=== PATIENT | female | born 1940 | race Caucasian/White ===

== ENCOUNTER 2018-04-05 12:14 | Inpatient (IN) | payer MEDICARE, OTHER ==
[2018-04-05 13:37] LABS: % BASOPHILS 0.7 % (0.0-2.0); % EOSINOPHILS 1.6 % (0.0-5.0); % LYMPHOCYTES 14.4 % (20.0-50.0); % MONOCYTES 8.5 % (2.0-10.0); % NEUTROPHILS 74.8 % (40.0-80.0); EOSINOPHILE ABSOLUTE 0.1 Th/cmm (0.1-0.4); HEMATOCRIT 37.8 % (41.0-60); LYMPHOCYTE ABSOLUTE 0.9 Th/cmm (1.5-3.0); MEAN CELL VOLUME 87.5 fl (81-100); MEAN CORPUSCULAR HEMOGLOBIN 27.9 pg (27.0-31.0); MEAN CORPUSCULAR HGB CONC 31.9 pg (28.0-36.0); MEAN PLATELET VOLUME 9.7 fl; MONOCYTE ABSOLUTE 0.5 Th/cmm (0.3-1.0); NEUTROPHILE ABSOLUTE 4.9 Th/cmm (1.8-8.0); PLATELET COUNT 174 Th/cmm (150-400); RED BLOOD COUNT 4.32 Mil/cmm (3.80-5.20); RED CELL DISTRIBUTION WIDTH 12.9 % (11.5-20.0); WHITE BLOOD COUNT 6.4 Th/cmm (4.8-10.8)
[2018-04-05 13:52] LABS: ALB/GLOB RATIO 1.2 (1.0-1.8); ALBUMIN 3.6 gm/dL (3.7-5.3); ALKALINE PHOSPHATASE 76 U/L (34-104); ANION GAP 10.7 (7.0-16.0); BILIRUBIN,TOTAL 0.2 mg/dL (0.3-1.0); BUN - UREA NITROGEN 26 mg/dL (7-25); CALCIUM SERUM 9.2 mg/dL (8.6-10.3); CARBON DIOXIDE 30.1 mEq/L (21.0-31.0); CHLORIDE 103 mEq/L (98-107); CREATININE - SERUM 0.6 mg/dL (0.6-1.2); GLUCOSE 96 mg/dL (70-105); PHOSPHOROUS 3.6 mg/dL (2.5-5.0); POTASSIUM SERUM 4.8 mEq/L (3.5-5.1); SGOT 19 U/L (13-39); SGPT/ALT 12 U/L (7-52); SODIUM SERUM 139 mEq/L (136-145); TOTAL PROTEIN,SERUM 6.7 gm/dL (6.0-8.3)
[2018-04-05] MEDS ORDERED: Lactated Ringer 1,000 ML IV ONE (14:19)
[2018-04-05 14:57] LABS: URINE SOURCE CATH
--- NOTE | 2018-04-05 15:00 | ED Physician Chart ---
ED Chief Complaint/HPI - Patient Information Date Seen:: 04/05/18 Time Seen:: 12:47 Chief Complaint:: increased agitation per report History of Present Illness:: 77 y/o [employer] from [facility]. A&O x 3. Hx Schizoaffective Disorder, Dysphagia, Anemia, HTN, Anxiety, and Depression. CC: combative - kicking, yelling, and biting episodes - per report. Allergies:: Allergies Allergy/AdvReac Type Severity Reaction Status Date / Time acetaminophen Allergy Verified 04/05/18 13:29 [From Excedrin Extra Strength] aspirin Allergy Verified 04/05/18 13:29 [From Excedrin Extra Strength] caffeine Allergy Verified 04/05/18 13:29 [From Excedrin Extra Strength] donepezil Allergy Verified 04/05/18 12:42 Vitals:: Vital Signs - 8 hr 04/05/18 04/05/18 12:47 13:08 Temp 97.4 F 98.7 F HR 96 83 RR 16 16 BP 113/68 113/68 O2 Sat % 98 95 Historian:: Medical Records Review:: Nurse's Note Reviewed, Transfer documents Reviewed ED Review of Systems - Review of Systems General/Constitutional: No fever, No chills, No weight loss, No weakness, No diaphoresis, No edema, No loss of appetite Skin: No skin lesions, No rash, No bruising Head: No headache, No light-headedness Eyes: No loss of vision, No pain, No diplopia ENT: No earache, No nasal drainage, No sore throat, No tinnitus Neck: No neck pain, No swelling, No thyromegaly, No stiffness, No mass noted Cardio Vascular: No chest pain, No palpitations, No PND, No orthopnea, No edema Pulmonary: No SOB, No cough, No sputum, No wheezing GI: No nausea, No vomiting, No diarrhea, No pain, No melena, No hematochezia, No constipation, No hematemesis G/U: No dysuria, No frequency, No hematuria Musculoskeletal: No bone or joint pain, No back pain, No muscle pain Endocrine: No polyuria, No polydipsia Psychiatric: Other (increased agitation) Hematopoietic: No bruising, No lymphadenopathy Allergic/Immuno: No urticaria, No angioedema Neurological: No syncope, No focal symptoms, No weakness, No paresthesia, No headache, No seizure, No dizziness, No confusion, No vertigo ED Past Medical History - Past Medical History Obtainable: No Past Medical History: PUD/GERD, Other (Parkinson's Disease) Psychiatricy History: Schizophrenia Family Medical History - Family Member Paternal Aunt History Unknown: Yes Ethnicity: Non- Living Status: Hx Family Cancer: No Hx Family Coronary Artery Disease: No Hx Family Congestive Heart Failure: No Hx Family Hypertension: No Hx Family Stroke: No Hx Family Diabetes: No Hx Family Seizures: No Hx Family Dementia: No Hx Family AIDS: No Hx Family HIV: No Hx Family COPD: No Hx Family Hepatitis: No Hx Family Psychiatric Problems: (unknown) Hx Family Tuberculosis: No ED Physical Exam - Physical Examination General/Constitutional: Awake, No distress, Non-toxic appearing Other Gen/Cons comments:: contracted BUE contractures Head: Atraumatic Eyes: Lids, conjuctiva normal, PERRL, EOMI Skin: Nl inspection, No rash, No skin lesions, No ecchymosis, No lymphadenopathy ENMT: External ears, nose nl Other ENMT comments:: dry mucous membranes Neck: Nontender, No nuchal rigidity, No stridor Respiratory: Nl effort/Exclusion, Clear to Auscultation, No Wheeze/Rhonchi/Rales Cardio Vascular: RRR, No murmur, gallop, rubs, NL S1 S2 GI: No tenderness/rebounding/guarding, No organomegaly, No hernia, Normal BS's, Nondistended, No mass/bruits, No McBurney tenderness Extremities: No tenderness or effusion, Full ROM, normal strength in all extremities, No edema, Normal digits & nails Neuro/Psych: Alert/oriented Other Neuro/Psych comments:: contracted BUE contractures ED Labs/Radiology/EKG Results - Lab Results Results: Laboratory Tests 04/05/18 04/05/18 04/05/18 13:29 13:29 13:29 WBC 6.4 RBC 4.32 Hgb 12.0 Hct 37.8 L MCV 87.5 MCH 27.9 MCHC Differential 31.9 RDW 12.9 Plt Count 174 MPV 9.7 Neutrophils % 74.8 Lymphocytes % 14.4 L Monocytes % 8.5 Eosinophils % 1.6 Basophils % 0.7 Sodium 139 Potassium 4.8 Chloride 103 Carbon Dioxide 30.1 Anion Gap 10.7 BUN 26 H Creatinine 0.6 Est GFR ( Amer) TNP Est GFR (Non-Af Amer) TNP BUN/Creatinine Ratio 43.3 Glucose 96 Whole Bld Lactic Acid Calcium 9.2 Phosphorus 3.6 Magnesium 2.0 Total Bilirubin 0.2 L AST 19 ALT 12 Alkaline Phosphatase 76 Total Protein 6.7 Albumin 3.6 L Globulin 3.1 Albumin/Globulin Ratio 1.2 TSH 3.82 04/05/18 13:29 WBC RBC Hgb Hct MCV MCH MCHC Differential RDW Plt Count MPV Neutrophils % Lymphocytes % Monocytes % Eosinophils % Basophils % Sodium Potassium Chloride Carbon Dioxide Anion Gap BUN Creatinine Est GFR ( Amer) Est GFR (Non-Af Amer) BUN/Creatinine Ratio Glucose Whole Bld Lactic Acid 0.64 Calcium Phosphorus Magnesium Total Bilirubin AST ALT Alkaline Phosphatase Total Protein Albumin Globulin Albumin/Globulin Ratio TSH ED Assessment - Assessment General Assessment: EKG from 14:15:59 p.m. reveals normal sinus rhythm with a rate of 80, movement artifact and nonspecific ST T wave changes. PATIENT IS NOT CLEAR FROM A MEDICAL STANDPOINT FOR THE GEROPSYCH UNIT. HER URINE LOOKS LIKE PUS AND DOESN'T LOOK LIKE URINE IN THE LEAST. called and spoke to Dr. Rudolph regarding the fact that I can not clear this patient for Geropsych Unit. He will admit the patient to med/surg and treat her medical conditions. ED Septic Shock - . Is Septic Shock (SBP<90, OR Lactate>4 mmol\L) present?: No - <6hrs of presentation: Vital Signs: Vital Signs - 8 hr 04/05/18 04/05/18 12:47 13:08 Temp 97.4 F 98.7 F HR 96 83 RR 16 16 BP 113/68 113/68 O2 Sat % 98 95 ED Reassessment (Disposition) - Reassessment Reassessment Condition:: Improved - Diagnosis Diagnosis:: Urinary tract infection in a patient whose urine looks like pus. Dehydration. Parkinson's Disease Schizophrenia - Patient Disposition Discharge/Transfer:: Acute Care w/in this hosp Admitted to:: Med/Surg Condition at Disposition:: Stable, Improved
[2018-04-05] MEDS ORDERED: Ciprofloxacin 400mg Premix PB 400 MG/200 ML BAG IV ONE ×2 (15:19→15:25)
[2018-04-05] MEDS: D5-0.45NS 1,000 ML IV SCH (19:37)
[2018-04-05] MEDS: cefTRIAXone 1 GM in Sodium Chloride 0.9% 50 ML IV SCH (19:40)
[2018-04-05 22:49] LABS: URINE BILIRUBIN NEGATIVE (NEGATIVE); URINE CLARITY CLOUDY (CLEAR); URINE COLOR YELLOW; URINE GLUCOSE (UA) NEGATIVE (NEGATIVE); URINE KETONE NEGATIVE (NEGATIVE); URINE MICROSCOPIC INDICATED? YES
[2018-04-05 22:50] LABS: URINE BLOOD LARGE (NEGATIVE); URINE LEUKOCYTE ESTERASE MODERATE (NEGATIVE); URINE NITRATE POSITIVE (NEGATIVE); URINE PROTEIN TRACE mg/dL (NEGATIVE); URINE UROBILINOGEN 0.2 E.U./dL (0.2 - 1.0)
[2018-04-05 22:53] LABS: URINE BACTERIA MANY /hpf (NONE SEEN); URINE EPITHELIAL CELLS NONE SEEN /lpf (FEW); URINE WBC 50-100 /hpf (0-5)
[2018-04-06 06:29] LABS: % BASOPHILS 0.9 % (0.0-2.0); % EOSINOPHILS 1.4 % (0.0-5.0); % LYMPHOCYTES 17.6 % (20.0-50.0); % MONOCYTES 9.7 % (2.0-10.0); % NEUTROPHILS 70.4 % (40.0-80.0); BASOPHILE ABSOLUTE 0.1 Th/cumm (0-0.2); EOSINOPHILE ABSOLUTE 0.1 Th/cmm (0.1-0.4); HEMATOCRIT 36.7 % (41.0-60); LYMPHOCYTE ABSOLUTE 1.1 Th/cmm (1.5-3.0); MEAN CELL VOLUME 86.3 fl (81-100); MEAN CORPUSCULAR HEMOGLOBIN 28.2 pg (27.0-31.0); MEAN CORPUSCULAR HGB CONC 32.7 pg (28.0-36.0); MEAN PLATELET VOLUME 10.3 fl; MONOCYTE ABSOLUTE 0.6 Th/cmm (0.3-1.0); NEUTROPHILE ABSOLUTE 4.6 Th/cmm (1.8-8.0); PLATELET COUNT 187 Th/cmm (150-400); RED BLOOD COUNT 4.26 Mil/cmm (3.80-5.20); RED CELL DISTRIBUTION WIDTH 12.8 % (11.5-20.0); WHITE BLOOD COUNT 6.5 Th/cmm (4.8-10.8)
[2018-04-06 06:41] LABS: ALB/GLOB RATIO 1.2 (1.0-1.8); ALBUMIN 3.6 gm/dL (3.7-5.3); ALKALINE PHOSPHATASE 68 U/L (34-104); ANION GAP 11.7 (7.0-16.0); BILIRUBIN,TOTAL 0.2 mg/dL (0.3-1.0); BUN - UREA NITROGEN 23 mg/dL (7-25); CARBON DIOXIDE 26.2 mEq/L (21.0-31.0); CHLORIDE 104 mEq/L (98-107); CREATININE - SERUM 0.6 mg/dL (0.6-1.2); GLUCOSE 109 mg/dL (70-105); POTASSIUM SERUM 3.9 mEq/L (3.5-5.1); SGOT 19 U/L (13-39); SGPT/ALT 11 U/L (7-52); SODIUM SERUM 138 mEq/L (136-145); TOTAL PROTEIN,SERUM 6.6 gm/dL (6.0-8.3)
--- NOTE | 2018-04-06 08:54 | Diagnostic Imaging Report ---
Renal ultrasound HISTORY: Hydronephrosis, pyelonephritis. COMPARISON: None Technique: Sonography of the kidneys and urinary bladder was performed in multiple planes. FINDINGS: Exam is limited due to body habitus. The right kidney measures 8.6 x 7 cm demonstrates small echogenic foci. No definite hydronephrosis. The left kidney measures 8.3 x 5.0 cm. The left renal margin is not well-defined, however, no obvious focal lesions or evidence of hydronephrosis. Increased echoes are seen along the base of the urinary bladder. IMPRESSION: Limited exam due to body habitus. No definite evidence of hydronephrosis. Echogenic foci of the right kidney which may present nonobstructive stones versus renal sinus fat. If indicated, CT would further clarify. Echogenic areas along the base of the urinary bladder which may represent debris, clot, or other urinary bladder intrinsic mass lesions. The significance of this finding should be correlated clinically.
--- NOTE | 2018-04-06 16:12 | Consultation ---
DATE OF CONSULTATION: 04/05/2018 INFECTIOUS DISEASE CONSULTATION REFERRING PHYSICIAN: Dr. Ward and Dr. Rudolph. REASON FOR CONSULTATION: UTI. HISTORY OF PRESENT ILLNESS: The patient is a 77-year-old female with past medical history of schizoaffective disorder, dysphagia, G-tube placement, hypertension, anemia, brought in from a nursing facility for aggressive behavior. On initial evaluation, her temperature was 97.4 degrees Fahrenheit and WBC count was 6400. Urinalysis showed cloudy urine with pyuria and bacteriuria. Antibiotic diop, Rocephin IV was started and ID consult was called for further evaluation and management. Meanwhile, the patient has received ciprofloxacin in the ER. PAST MEDICAL HISTORY: Includes ____ schizoaffective disorder, cachexia, dysphagia, G-tube placement, hypertension, anemia, and contractures of upper extremities. ALLERGIES: THE PATIENT IS ALLERGIC TO EXCEDRIN AND DONEPEZIL. MEDICATIONS: As per medication reconciliation sheet. Antibiotic diop, the patient is on Rocephin. FAMILY HISTORY: Not available. SOCIAL HISTORY: The patient lives in a nursing facility. No history of smoking, alcohol or drug use. REVIEW OF SYSTEMS: GENERAL: The patient denies any fever or chills. HEENT: Denies any diplopia, photophobia, sore throat, or congestion. RESPIRATORY: Denies any cough or shortness of breath. CARDIOVASCULAR: No chest pain or palpitation. GASTROINTESTINAL: No nausea. No vomiting. No diarrhea. No constipation. The patient has dysphagia and is on G-tube feeding. GENITOURINARY: No dysuria. No hematuria. NEUROLOGIC: No headache. No dizziness. No focal weakness. PHYSICAL EXAMINATION: CURRENT VITAL SIGNS: Temperature is 98.6 degrees Fahrenheit, pulse 83, respirations 18, blood pressure 133/73. GENERAL: The patient is comfortable, lying in the bed, not in acute distress, cachectic. HEENT: Head is normocephalic, atraumatic. Oral cavity is moist and pink. Eyes, no pallor, no icterus. Pupils, PERRLA. EOMI. NECK: Supple. No JVD. No carotid bruit. Trachea in midline. CHEST: Bilateral vesicular breath sounds. No crackles or wheezing. CARDIOVASCULAR: S1 and S2 within normal limits. Regular rhythm. No murmur. No gallop. ABDOMEN: Soft, nontender, nondistended. Bowel sounds present. Scaphoid. EXTREMITIES: No cyanosis. No clubbing. No edema. NEUROLOGICAL: Alert, awake, oriented x 3. The patient has flexion contractures of the extremity. SKIN: Intact. LABORATORY DATA: Current labs showed WBC count 6400, hemoglobin 12, hematocrit 37.8, platelets are 174,000, neutrophils 75%. Sodium is 139, potassium 4.8, chloride 103, bicarbonate is 30, BUN is 26, creatinine 0.6, glucose is 96. LFTs are reviewed. Urinalysis is cloudy urine with large blood, positive nitrite, moderate leukocyte esterase, wbc's 50-100, and many bacteria. IMPRESSION: 1. Urinary tract infection. 2. Agitation. 3. Schizoaffective disorder. 4. Hypertension. 5. Dysphagia, G-tube placement. RECOMMENDATIONS AND PLAN: We will continue Rocephin and check renal ultrasound. Depending on the culture report, we will define final antibiotic therapy. Thank you, Dr. Rudolph and Dr. Ward for involving me in taking care of this patient. JOB# [id number]
[2018-04-06] MEDS ORDERED: Non-Formulary Item 1 EA (Amino Acids/Protein Hydrolys [Pro-Stat Sugar Free Liquid] 30 ML) GT SCH (17:30)
[2018-04-06] MEDS: Pantoprazole 40 mg/Packet GT SCH (18:16)
[2018-04-06] MEDS: Docusate Sodium 100 mg/10 mL UD GT SCH (18:17)
[2018-04-06] MEDS: cefTRIAXone 1 GM in Sodium Chloride 0.9% 50 ML IV SCH (18:19)
[2018-04-06] MEDS ORDERED: Non-Formulary Item 1 EA (Melatonin [Melatonin] 10 MG) GT SCH (21:00)
[2018-04-06] MEDS: Dextromethorphan/Quinidine 20mg/10mg Cap GT SCH (21:36)
[2018-04-06] MEDS: D5-0.45NS 1,000 ML IV SCH (21:37)
--- NOTE | 2018-04-06 23:52 | History & Physical ---
ADMIT DATE: 04/05/2018 CHIEF COMPLAINT: Aggressive behavior. HISTORY OF PRESENT ILLNESS: This is a 77-year-old female who lives in a half-way facility with underlying history of mental health disorders, dysphagia on tube feeding, chronic low back pain, hypertension, and GERD; who was brought into the Emergency Room for evaluation of behavioral disturbances and initially in the ER evaluation, the patient with history of UTI, so the patient was admitted for further evaluation and treatment. During my evaluation, the patient complained of low back pain. Denies any nausea. No vomiting, no diarrhea, no abdominal pain, no chest pain or trouble breathing. PAST MEDICAL HISTORY: As per HPI. PAST SURGICAL HISTORY: G-tube. FAMILY HISTORY: Noncontributory. SOCIAL HISTORY: [facility] resident. No reported alcohol, tobacco, or street drugs. CURRENT MEDICATIONS: Per medication reconciliation. ALLERGIES: To ASPIRIN, TYLENOL, CAFFEINE, and ARICEPT. REVIEW OF SYSTEMS: As per HPI, 12-point systems negative. PHYSICAL EXAMINATION: VITAL SIGNS: Temperature 98, pulse 100, respirations 18, and blood pressure 137/80. HEENT: Unremarkable. HEART: S1 and S2 normal. LUNGS: Clear to auscultation bilaterally. ABDOMEN: Soft, nontender. EXTREMITIES: No edema. NEUROLOGIC: The patient is awake, but somewhat confused. Moves all extremities. LABORATORY DATA: Available laboratory data has been reviewed. ASSESSMENT: 1. Urinary tract infection. 2. Parkinson disease. 3. Chronic low back. 4. Hypertension. 5. Dysphagia, on tube feeding. PLAN: Continue Rocephin. Follow up urine culture. ID consulted. We will follow labs. Psych consult. Continue psychotropic medication. Continue Parkinson's medications. continue tube feedings. Plan of care discussed with the nursing staff JOB# [id number] DAVON
--- NOTE | 2018-04-07 00:38 | Infectious Disease Prog Note ---
Infectious Disease Subjective - Review of Systems Service Date: 04/06/18 Subjective: no new change, no fever. Infectious Disease Objective - Results Result Diagrams: 04/06/18 06:00 04/06/18 06:00 Recent Labs: Laboratory Last Values WBC 6.5 Th/cmm (4.8-10.8) 04/06/18 06:00 RBC 4.26 Mil/cmm (3.80-5.20) 04/06/18 06:00 Hgb 12.0 gm/dL (12-16) 04/06/18 06:00 Hct 36.7 % (41.0-60) L 04/06/18 06:00 MCV 86.3 fl (81-100) 04/06/18 06:00 MCH 28.2 pg (27.0-31.0) 04/06/18 06:00 MCHC Differential 32.7 pg (28.0-36.0) 04/06/18 06:00 RDW 12.8 % (11.5-20.0) 04/06/18 06:00 Plt Count 187 Th/cmm (150-400) 04/06/18 06:00 MPV 10.3 fl 04/06/18 06:00 Neutrophils % 70.4 % (40.0-80.0) 04/06/18 06:00 Lymphocytes % 17.6 % (20.0-50.0) L 04/06/18 06:00 Monocytes % 9.7 % (2.0-10.0) 04/06/18 06:00 Eosinophils % 1.4 % (0.0-5.0) 04/06/18 06:00 Basophils % 0.9 % (0.0-2.0) 04/06/18 06:00 Sodium 138 mEq/L (136-145) 04/06/18 06:00 Potassium 3.9 mEq/L (3.5-5.1) 04/06/18 06:00 Chloride 104 mEq/L (98-107) 04/06/18 06:00 Carbon Dioxide 26.2 mEq/L (21.0-31.0) 04/06/18 06:00 Anion Gap 11.7 (7.0-16.0) 04/06/18 06:00 BUN 23 mg/dL (7-25) 04/06/18 06:00 Creatinine 0.6 mg/dL (0.6-1.2) 04/06/18 06:00 Est GFR ( Amer) TNP 04/06/18 06:00 Est GFR (Non-Af Amer) TNP 04/06/18 06:00 BUN/Creatinine Ratio 38.3 04/06/18 06:00 Glucose 109 mg/dL (70-105) H 04/06/18 06:00 POC Glucose 80 MG/DL (70 - 105) 04/05/18 17:48 Whole Bld Lactic Acid 0.64 mmol/L (0.60-1.99) 04/05/18 13:29 Calcium 9.0 mg/dL (8.6-10.3) 04/06/18 06:00 Phosphorus 3.6 mg/dL (2.5-5.0) 04/05/18 13:29 Magnesium 2.0 mg/dL (1.9-2.7) 04/05/18 13:29 Total Bilirubin 0.2 mg/dL (0.3-1.0) L 04/06/18 06:00 AST 19 U/L (13-39) 04/06/18 06:00 ALT 11 U/L (7-52) 04/06/18 06:00 Alkaline Phosphatase 68 U/L (34-104) 04/06/18 06:00 Troponin I 0.01 ng/mL (0.01-0.05) 04/05/18 13:29 Total Protein 6.6 gm/dL (6.0-8.3) 04/06/18 06:00 Albumin 3.6 gm/dL (3.7-5.3) L 04/06/18 06:00 Globulin 3.0 gm/dL 04/06/18 06:00 Albumin/Globulin Ratio 1.2 (1.0-1.8) 04/06/18 06:00 TSH 3.82 uIU/ml (0.34-5.60) 04/05/18 13:29 Urine Source CATH 04/05/18 14:05 Urine Color YELLOW 04/05/18 14:05 Urine Clarity CLOUDY (CLEAR) H 04/05/18 14:05 Urine pH 8.0 (4.6 - 8.0) 04/05/18 14:05 Ur Specific Victor 1.010 (1.005-1.030) 04/05/18 14:05 Urine Protein TRACE mg/dL (NEGATIVE) 04/05/18 14:05 Urine Glucose (UA) NEGATIVE mg/dL (NEGATIVE) 04/05/18 14:05 Urine Ketones NEGATIVE mg/dL (NEGATIVE) 04/05/18 14:05 Urine Blood LARGE (NEGATIVE) H 04/05/18 14:05 Urine Nitrate POSITIVE (NEGATIVE) H 04/05/18 14:05 Urine Bilirubin NEGATIVE (NEGATIVE) 04/05/18 14:05 Urine Urobilinogen 0.2 E.U./dL (0.2 - 1.0) 04/05/18 14:05 Ur Leukocyte Esterase MODERATE (NEGATIVE) H 04/05/18 14:05 Urine RBC 2-5 /hpf (0-5) 04/05/18 14:05 Urine WBC 50-100 /hpf (0-5) H 04/05/18 14:05 Ur Epithelial Cells NONE SEEN /lpf (FEW) 04/05/18 14:05 Urine Bacteria MANY /hpf (NONE SEEN) H 04/05/18 14:05 - Physical Exam Vitals and I&O: Vital Signs Temp 98 F 04/06/18 20:00 Pulse 100 04/06/18 20:00 Resp 18 04/06/18 20:00 BP 137/80 04/06/18 20:00 Pulse Ox 92 04/06/18 20:00 Intake & Output 04/06/18 04/06/18 04/07/18 06:59 18:59 06:59 Intake Total 986 1000 50 Balance 986 1000 50 Weight (lbs) 50.666 kg 50.349 kg Intake: Intake, IV Amount 50 1000 50 D5-0.45NS 1,000 ml @ 70 1000 mls/hr IV .[id number] [facility]ER Rx #:[id number] cefTRIAXone 1 gm In 50 50 Sodium Chloride 0.9% 50 ml @ 100 mls/hr IV Q24HR [facility]ER Rx#:[id number] Tube Feeding 936 Other: # Voids 2 3 # Bowel Movements 0 Weight Source Bedscale Bedscale Active Medications: Current Medications Ascorbic Acid (Vitamin C) 500 mg GT DAILY [facility] Stop: 06/05/18 17:29 Last Admin: 04/06/18 18:17 Dose: 500 mg Benztropine Mesylate (Cogentin) 0.5 mg GT BID [facility] Stop: 06/05/18 17:29 Last Admin: 04/06/18 18:17 Dose: 0.5 mg Buspirone HCl (Buspar) 10 mg GT TID [facility]; Protocol Stop: 06/05/18 20:59 Last Admin: 04/06/18 21:36 Dose: 10 mg Cyclobenzaprine HCl (Flexeril) 5 mg GT BID [facility] Stop: 06/05/18 17:29 Last Admin: 04/06/18 18:17 Dose: 5 mg Dextromethorphan/Quinidine (Nuedexta 20mg-10mg) 1 cap GT HS [facility] Stop: 06/05/18 20:59 Last Admin: 04/06/18 21:36 Dose: 1 cap Docusate Sodium (Colace) 100 mg GT DAILY [facility] Stop: 06/05/18 17:44 Last Admin: 04/06/18 18:17 Dose: 100 mg Gabapentin (Neurontin) 200 mg GT BID [facility] Stop: 06/05/18 17:44 Last Admin: 04/06/18 18:16 Dose: 200 mg Gabapentin (Neurontin) 300 mg GT HS [facility] Stop: 06/05/18 20:59 Last Admin: 04/06/18 21:36 Dose: 300 mg Ceftriaxone Sodium 1 gm/ (Sodium Chloride) 50 mls @ 100 mls/hr IV Q24HR [facility] Stop: 06/04/18 17:59 Last Infusion: 04/06/18 19:55 Dose: Infused Dextrose/Sodium Chloride (D5-0.45ns) 1,000 mls @ 70 mls/hr IV .[id number] [facility] Stop: 06/04/18 17:17 Last Admin: 04/06/18 21:37 Dose: 70 mls/hr Lidocaine (Lidoderm 5% Patch) 1 patch TD DAILY [facility] Stop: 06/05/18 17:44 Lorazepam (Ativan) 0.5 mg GT Q6HR PRN; Protocol PRN Reason: Anxiety Stop: 06/05/18 17:29 Last Admin: 04/06/18 21:47 Dose: 0.5 mg Metoprolol Tartrate (Lopressor) 12.5 mg GT BID [facility] Stop: 06/05/18 17:44 Last Admin: 04/06/18 18:16 Dose: 12.5 mg Mirtazapine (Remeron) 22.5 mg GT HS [facility] Stop: 06/05/18 20:59 Last Admin: 04/06/18 21:36 Dose: 22.5 mg Miscellaneous (Amino Acids/Protein Hydrolys [Pro-Stat Sugar Free Liquid]) 30 ml GT BID [facility] Stop: 06/05/18 17:29 Miscellaneous (Fenofibric Acid [Fenofibric Acid]) 54 mg GT HS [facility] Stop: 06/05/18 20:59 Miscellaneous (Lurasidone Hcl [Latuda]) 10 mg GT QPM [facility] Stop: 06/06/18 16:59 Miscellaneous (Melatonin [Melatonin]) 10 mg GT HS [facility] Stop: 06/05/18 20:59 Pantoprazole Sodium (Protonix) 40 mg GT BID [facility] Stop: 06/05/18 17:44 Last Admin: 04/06/18 18:16 Dose: 40 mg Tramadol HCl (Ultram) 50 mg GT Q6HR PRN PRN Reason: Pain (Moderate) Stop: 06/05/18 00:25 Last Admin: 04/06/18 15:52 Dose: 50 mg Tramadol HCl (Ultram) 50 mg GT Q6HR PRN PRN Reason: Pain (Moderate) Stop: 06/05/18 17:29 General: no acute distress, well developed HEENT: atraumatic, normocephalic, PERRLA, EOMI Neck: supple, no thyromegaly Cardiovascular: S1S2, regular Lungs: clear to auscultation bilaterally, clear to percussion Abdomen: soft, no tender, no distended, no rebound Extremities: no cyanosis, no clubbing, no edema - Procedures Procedures: Procedures Procedure Code Date GROUP PSYCHOTHERAPY [id number] 12/13/14 Infectious Disease Assmt/Plan - Assessment Assessment: 1. Urinary tract infection. 2. Agitation. 3. Schizoaffective disorder. 4. Hypertension. 5. Dysphagia, G-tube placement. - Plan Plan: CPm. Nutritional Asmnt/Malnutr-PDOC - Dietary Evaluation Malnutrition Findings (Please click <Entered> for more info): Nutritional Asmnt/Malnutrition Start: 04/06/18 13: 49 Text: Status: Complete Freq: Protocol: Document 04/06/18 13:49 MITZI (Rec: 04/06/18 14:01 [email or web address]) Nutritional Asmnt/Malnutrition Patient General Information Nutritional Screening High Risk Consult Diagnosis UTI, dehydration, ALOC Pertinent Medical Hx/Surgical Hx PUD/GERD, parkinson, schizophrenia Subjective Information Consult received for TF and jayesh 11. Pt seen lying in bed at time of visit. Observed TF running at 58ml/hr at this time. Per nurse note, pt tolerated TF well and no residual noted. Current Diet Order/ Nutrition Support Jevity 1.2 at 58ml/hr x 20hr, flush with water 100cc q6hr Pertinent Medications D5-0.45ns Pertinent Labs 2/4 Glucose 109, alb 3.6 2/3 BUN 26, Alb 3.6 Nutritional Hx/Data Height 1.55 m Height (Calculated Centimeters) 154.9 Current Weight (lbs) 50.802 kg Weight (Calculated Kilograms) 50.8 Weight (Calculated Grams) 65589.3 Duarte Body Weight 105 Body Mass Index (BMI) 21.1 Weight Status Approriate GI Symptoms GI Symptoms None Last BM not indicated Usual diet at home Jevity 1.5 at 58ml/hr x 20hr Skin Integrity/Comment: reddened to vagina, left lower leg and lower back, lesion to left knee, scar to left leg and right knee. Estimated Nutritional Goals BEE in Kcals: Using Current wt Calories/Kcals/Kg 25-30 Kcals Calculated [id number] Protein: Using Current wt Protein g/k-1.2 Fluid: ml 1250-1500ml (1ml/kcal) Nutritional Problem No current Nutrition Prob Problem N/A Intervention/Recommendation Comments 1. Continue with current TF regimen. It provides 1200kcal, 54g protein, 888ml free water , meeting 100% of nutritional needs 2. Monitor TF rate, tolerance, wt, skin integrity and labs 3. F/U as moderate risk in 3-5 days, 04/09-04/11 Expected Outcomes/Goals Expected Outcomes/Goals 1. Pt to meet at least 90% of nutritional needs via nutrition support with tolerance 2. Wt stability, skin to remain intact, labs to approach WNL.
[2018-04-07] MEDS: Docusate Sodium 100 mg/10 mL UD GT SCH (09:01)
[2018-04-07] MEDS: Pantoprazole 40 mg/Packet GT SCH ×2 (09:09→18:38)
[2018-04-07] MEDS: Lidocaine 5% Patch TD SCH (10:48)
--- NOTE | 2018-04-07 15:37 | Consultation ---
DATE OF CONSULTATION: 04/06/2018 HISTORY OF PRESENT ILLNESS: A 77-year-old female brought in from a longterm in [place]. Alert and oriented to name, place. She does not know why she is here. She does not know the year, the month, the patient was apparently very combative, kicking, yelling, biting episodes. On [id number], the patient rambling, hard to redirect, states that she is in distress and does want to be here and talks about different topics. States that she has "low energy." States the year is "20." Does not know why she is here, does not know the month, seems to be talking to self, rambling to self. PAST PSYCHIATRIC HISTORY: As noted schizophrenia versus schizoaffective. PAST MEDICAL HISTORY: Noted including Parkinson's disease. SOCIAL HISTORY: She was staying at a longterm facility. MEDICATIONS: Noted including doses and frequencies. For now, it seems that she is on tramadol, ciprofloxacin, but seems to also be on a regimen of Nuedexta, Cogentin. MENTAL STATUS EXAMINATION: Stated age, flexion noted in her upper extremities. Mood: "low energy." Affect flat. Thought processes were tangential. No overt SI or HI, unclear psychotic symptoms. She is responding to internal stimuli, poor impulse control, combative. PROVISIONAL DIAGNOSIS: Schizoaffective versus schizophrenia per history and documentation. MEDICAL: Please see full H and P. RECOMMENDATIONS AND PLAN: We will continue to monitor. Recommend Geropsych placement upon medical stability and clearance. [facility]# [id number]
[2018-04-07] MEDS ORDERED: LURASIDONE HCL 10 MG GT SCH (17:00)
[2018-04-07] MEDS: cefTRIAXone 1 GM in Sodium Chloride 0.9% 50 ML IV SCH (18:43)
[2018-04-07] MEDS: D5-0.45NS 1,000 ML IV SCH (18:45)
--- NOTE | 2018-04-07 20:47 | General Progress Note ---
Subjective - Review of Systems Service Date: 04/07/18 Subjective: Patient seen and examined doing better afebrile no other new concern reported Objective - Results Result Diagrams: 04/06/18 06:00 04/06/18 06:00 Recent Labs: Laboratory Last Values WBC 6.5 Th/cmm (4.8-10.8) 04/06/18 06:00 RBC 4.26 Mil/cmm (3.80-5.20) 04/06/18 06:00 Hgb 12.0 gm/dL (12-16) 04/06/18 06:00 Hct 36.7 % (41.0-60) L 04/06/18 06:00 MCV 86.3 fl (81-100) 04/06/18 06:00 MCH 28.2 pg (27.0-31.0) 04/06/18 06:00 MCHC Differential 32.7 pg (28.0-36.0) 04/06/18 06:00 RDW 12.8 % (11.5-20.0) 04/06/18 06:00 Plt Count 187 Th/cmm (150-400) 04/06/18 06:00 MPV 10.3 fl 04/06/18 06:00 Neutrophils % 70.4 % (40.0-80.0) 04/06/18 06:00 Lymphocytes % 17.6 % (20.0-50.0) L 04/06/18 06:00 Monocytes % 9.7 % (2.0-10.0) 04/06/18 06:00 Eosinophils % 1.4 % (0.0-5.0) 04/06/18 06:00 Basophils % 0.9 % (0.0-2.0) 04/06/18 06:00 Sodium 138 mEq/L (136-145) 04/06/18 06:00 Potassium 3.9 mEq/L (3.5-5.1) 04/06/18 06:00 Chloride 104 mEq/L (98-107) 04/06/18 06:00 Carbon Dioxide 26.2 mEq/L (21.0-31.0) 04/06/18 06:00 Anion Gap 11.7 (7.0-16.0) 04/06/18 06:00 BUN 23 mg/dL (7-25) 04/06/18 06:00 Creatinine 0.6 mg/dL (0.6-1.2) 04/06/18 06:00 Est GFR ( Amer) TNP 04/06/18 06:00 Est GFR (Non-Af Amer) TNP 04/06/18 06:00 BUN/Creatinine Ratio 38.3 04/06/18 06:00 Glucose 109 mg/dL (70-105) H 04/06/18 06:00 POC Glucose 80 MG/DL (70 - 105) 04/05/18 17:48 Whole Bld Lactic Acid 0.64 mmol/L (0.60-1.99) 04/05/18 13:29 Calcium 9.0 mg/dL (8.6-10.3) 04/06/18 06:00 Phosphorus 3.6 mg/dL (2.5-5.0) 04/05/18 13:29 Magnesium 2.0 mg/dL (1.9-2.7) 04/05/18 13:29 Total Bilirubin 0.2 mg/dL (0.3-1.0) L 04/06/18 06:00 AST 19 U/L (13-39) 04/06/18 06:00 ALT 11 U/L (7-52) 04/06/18 06:00 Alkaline Phosphatase 68 U/L (34-104) 04/06/18 06:00 Troponin I 0.01 ng/mL (0.01-0.05) 04/05/18 13:29 Total Protein 6.6 gm/dL (6.0-8.3) 04/06/18 06:00 Albumin 3.6 gm/dL (3.7-5.3) L 04/06/18 06:00 Globulin 3.0 gm/dL 04/06/18 06:00 Albumin/Globulin Ratio 1.2 (1.0-1.8) 04/06/18 06:00 TSH 3.82 uIU/ml (0.34-5.60) 04/05/18 13:29 Urine Source CATH 04/05/18 14:05 Urine Color YELLOW 04/05/18 14:05 Urine Clarity CLOUDY (CLEAR) H 04/05/18 14:05 Urine pH 8.0 (4.6 - 8.0) 04/05/18 14:05 Ur Specific [place] 1.010 (1.005-1.030) 04/05/18 14:05 Urine Protein TRACE mg/dL (NEGATIVE) 04/05/18 14:05 Urine Glucose (UA) NEGATIVE mg/dL (NEGATIVE) 04/05/18 14:05 Urine Ketones NEGATIVE mg/dL (NEGATIVE) 04/05/18 14:05 Urine Blood LARGE (NEGATIVE) H 04/05/18 14:05 Urine Nitrate POSITIVE (NEGATIVE) H 04/05/18 14:05 Urine Bilirubin NEGATIVE (NEGATIVE) 04/05/18 14:05 Urine Urobilinogen 0.2 E.U./dL (0.2 - 1.0) 04/05/18 14:05 Ur Leukocyte Esterase MODERATE (NEGATIVE) H 04/05/18 14:05 Urine RBC 2-5 /hpf (0-5) 04/05/18 14:05 Urine WBC 50-100 /hpf (0-5) H 04/05/18 14:05 Ur Epithelial Cells NONE SEEN /lpf (FEW) 04/05/18 14:05 Urine Bacteria MANY /hpf (NONE SEEN) H 04/05/18 14:05 - Physical Exam Vitals and I&O: Vital Signs Temp 97.6 F 04/07/18 16:00 Pulse 91 04/07/18 18:17 Resp 18 04/07/18 16:00 BP 134/78 04/07/18 18:17 Pulse Ox 99 04/07/18 16:00 Intake & Output 04/07/18 04/07/18 04/08/18 06:59 18:59 06:59 Intake Total 50 1000 Output Total 1 Balance 50 999 Weight (lbs) 50.349 kg Intake: Intake, IV Amount 50 1000 D5-0.45NS 1,000 ml @ 70 1000 mls/hr IV .[id number] [facility] Rx #:[id number] cefTRIAXone 1 gm In 50 Sodium Chloride 0.9% 50 ml @ 100 mls/hr IV Q24HR [facility] Rx#:[id number] Output: Stool 1 Other: Stool Characteristics Formed Hard Weight Source Bedscale Active Medications: Current Medications Ascorbic Acid (Vitamin C) 500 mg GT DAILY [facility] Stop: 06/05/18 17:29 Last Admin: 04/07/18 09:02 Dose: 500 mg Benztropine Mesylate (Cogentin) 0.5 mg GT BID [facility] Stop: 06/05/18 17:29 Last Admin: 04/07/18 18:16 Dose: 0.5 mg Buspirone HCl (Buspar) 10 mg GT TID [facility]; Protocol Stop: 06/05/18 20:59 Last Admin: 04/07/18 15:08 Dose: 10 mg Cyclobenzaprine HCl (Flexeril) 5 mg GT BID [facility] Stop: 06/05/18 17:29 Last Admin: 04/07/18 18:16 Dose: 5 mg Dextromethorphan/Quinidine (Nuedexta 20mg-10mg) 1 cap GT HS [facility] Stop: 06/05/18 20:59 Last Admin: 04/06/18 21:36 Dose: 1 cap Docusate Sodium (Colace) 100 mg GT DAILY [facility] Stop: 06/05/18 17:44 Last Admin: 04/07/18 09:01 Dose: 100 mg Gabapentin (Neurontin) 200 mg GT BID [facility] Stop: 06/05/18 17:44 Last Admin: 04/07/18 18:16 Dose: 200 mg Gabapentin (Neurontin) 300 mg GT [facility] Stop: 06/05/18 20:59 Last Admin: 04/06/18 21:36 Dose: 300 mg Ceftriaxone Sodium 1 gm/ (Sodium Chloride) 50 mls @ 100 mls/hr IV Q24HR [facility] Stop: 06/04/18 17:59 Last Admin: 04/07/18 18:43 Dose: 100 mls/hr Dextrose/Sodium Chloride (D5-0.45ns) 1,000 mls @ 70 mls/hr IV .[id number] [facility] Stop: 06/04/18 17:17 Last Admin: 04/07/18 18:45 Dose: 70 mls/hr Lidocaine (Lidoderm 5% Patch) 1 patch TD DAILY [facility] Stop: 06/05/18 17:44 Last Admin: 04/07/18 10:48 Dose: 1 patch Lorazepam (Ativan) 0.5 mg GT Q6HR PRN; Protocol PRN Reason: Anxiety Stop: 06/05/18 17:29 Last Admin: 04/06/18 21:47 Dose: 0.5 mg Metoprolol Tartrate (Lopressor) 12.5 mg GT BID [facility] Stop: 06/05/18 17:44 Last Admin: 04/07/18 18:17 Dose: 12.5 mg Mirtazapine (Remeron) 22.5 mg GT HS [facility] Stop: 06/05/18 20:59 Last Admin: 04/06/18 21:36 Dose: 22.5 mg Miscellaneous (Amino Acids/Protein Hydrolys [Pro-Stat Sugar Free Liquid]) 30 ml GT BID [facility] Stop: 06/05/18 17:29 Miscellaneous (Fenofibric Acid [Fenofibric Acid]) 54 mg GT HS [facility] Stop: 06/05/18 20:59 Miscellaneous (Lurasidone Hcl [Latuda]) 10 mg GT QPM [facility] Stop: 06/06/18 16:59 Miscellaneous (Melatonin [Melatonin]) 10 mg GT HS [facility] Stop: 06/05/18 20:59 Pantoprazole Sodium (Protonix) 40 mg GT BID [facility] Stop: 06/05/18 17:44 Last Admin: 04/07/18 18:38 Dose: 40 mg Tramadol HCl (Ultram) 50 mg GT Q6HR PRN PRN Reason: Pain (Moderate) Stop: 06/05/18 00:25 Last Admin: 04/06/18 15:52 Dose: 50 mg Tramadol HCl (Ultram) 50 mg GT Q6HR PRN PRN Reason: Pain (Moderate) Stop: 06/05/18 17:29 Cardiovascular: Regular rate Lungs: Clear to auscultation Abdomen: Soft, no Tender - Procedures Procedures: Procedures Procedure Code Date GROUP PSYCHOTHERAPY GZHZZZZ 12/13/14 Assessment/Plan - Assessment Assessment: UTI Parkinsons disease HTN Neuropathy Chronic pain syndrome - Plan Plan: Follow final culture Rocephine Monitor BP Plan of care discussed with nursing staff Nutritional Asmnt/Malnutr-PDOC - Dietary Evaluation Malnutrition Findings (Please click <Entered> for more info): Nutritional Asmnt/Malnutrition Start: 04/06/18 13: 49 Text: Status: Complete Freq: Protocol: Document 04/06/18 13:49 MITZI (Rec: 04/06/18 14:01 [email or web address]) Nutritional Asmnt/Malnutrition Patient General Information Nutritional Screening High Risk Consult Diagnosis UTI, dehydration, ALOC Pertinent Medical Hx/Surgical Hx PUD/GERD, parkinson, schizophrenia Subjective Information Consult received for TF and jayesh 11. Pt seen lying in bed at time of visit. Observed TF running at 58ml/hr at this time. Per nurse note, pt tolerated TF well and no residual noted. Current Diet Order/ Nutrition Support Jevity 1.2 at 58ml/hr x 20hr, flush with water 100cc q6hr Pertinent Medications D5-0.45ns Pertinent Labs 2/4 Glucose 109, alb 3.6 2/3 BUN 26, Alb 3.6 Nutritional Hx/Data Height 1.55 m Height (Calculated Centimeters) 154.9 Current Weight (lbs) 50.802 kg Weight (Calculated Kilograms) 50.8 Weight (Calculated Grams) 63424.3 [place] Body Weight 105 Body Mass Index (BMI) 21.1 Weight Status Approriate GI Symptoms GI Symptoms None Last BM not indicated Usual diet at home Jevity 1.5 at 58ml/hr x 20hr Skin Integrity/Comment: reddened to vagina, left lower leg and lower back, lesion to left knee, scar to left leg and right knee. Estimated Nutritional Goals BEE in Kcals: Using Current wt Calories/Kcals/Kg 25-30 Kcals Calculated 3378-8887 Protein: Using Current wt Protein g/k-1.2 Fluid: ml 1250-1500ml (1ml/kcal) Nutritional Problem No current Nutrition Prob Problem N/A Intervention/Recommendation Comments 1. Continue with current TF regimen. It provides 1200kcal, 54g protein, 888ml free water , meeting 100% of nutritional needs 2. Monitor TF rate, tolerance, wt, skin integrity and labs 3. F/U as moderate risk in 3-5 days, 04/09-04/11 Expected Outcomes/Goals Expected Outcomes/Goals 1. Pt to meet at least 90% of nutritional needs via nutrition support with tolerance 2. Wt stability, skin to remain intact, labs to approach WNL.
[2018-04-07] MEDS: Dextromethorphan/Quinidine 20mg/10mg Cap GT SCH (20:51)
--- NOTE | 2018-04-08 | Infectious Disease Prog Note ---
Infectious Disease Subjective - Review of Systems Service Date: 04/07/18 Subjective: no new change, no fever. Infectious Disease Objective - Results Result Diagrams: 04/06/18 06:00 04/06/18 06:00 Recent Labs: Laboratory Last Values WBC 6.5 Th/cmm (4.8-10.8) 04/06/18 06:00 RBC 4.26 Mil/cmm (3.80-5.20) 04/06/18 06:00 Hgb 12.0 gm/dL (12-16) 04/06/18 06:00 Hct 36.7 % (41.0-60) L 04/06/18 06:00 MCV 86.3 fl (81-100) 04/06/18 06:00 MCH 28.2 pg (27.0-31.0) 04/06/18 06:00 MCHC Differential 32.7 pg (28.0-36.0) 04/06/18 06:00 RDW 12.8 % (11.5-20.0) 04/06/18 06:00 Plt Count 187 Th/cmm (150-400) 04/06/18 06:00 MPV 10.3 fl 04/06/18 06:00 Neutrophils % 70.4 % (40.0-80.0) 04/06/18 06:00 Lymphocytes % 17.6 % (20.0-50.0) L 04/06/18 06:00 Monocytes % 9.7 % (2.0-10.0) 04/06/18 06:00 Eosinophils % 1.4 % (0.0-5.0) 04/06/18 06:00 Basophils % 0.9 % (0.0-2.0) 04/06/18 06:00 Sodium 138 mEq/L (136-145) 04/06/18 06:00 Potassium 3.9 mEq/L (3.5-5.1) 04/06/18 06:00 Chloride 104 mEq/L (98-107) 04/06/18 06:00 Carbon Dioxide 26.2 mEq/L (21.0-31.0) 04/06/18 06:00 Anion Gap 11.7 (7.0-16.0) 04/06/18 06:00 BUN 23 mg/dL (7-25) 04/06/18 06:00 Creatinine 0.6 mg/dL (0.6-1.2) 04/06/18 06:00 Est GFR ( Amer) TNP 04/06/18 06:00 Est GFR (Non-Af Amer) TNP 04/06/18 06:00 BUN/Creatinine Ratio 38.3 04/06/18 06:00 Glucose 109 mg/dL (70-105) H 04/06/18 06:00 POC Glucose 80 MG/DL (70 - 105) 04/05/18 17:48 Whole Bld Lactic Acid 0.64 mmol/L (0.60-1.99) 04/05/18 13:29 Calcium 9.0 mg/dL (8.6-10.3) 04/06/18 06:00 Phosphorus 3.6 mg/dL (2.5-5.0) 04/05/18 13:29 Magnesium 2.0 mg/dL (1.9-2.7) 04/05/18 13:29 Total Bilirubin 0.2 mg/dL (0.3-1.0) L 04/06/18 06:00 AST 19 U/L (13-39) 04/06/18 06:00 ALT 11 U/L (7-52) 04/06/18 06:00 Alkaline Phosphatase 68 U/L (34-104) 04/06/18 06:00 Troponin I 0.01 ng/mL (0.01-0.05) 04/05/18 13:29 Total Protein 6.6 gm/dL (6.0-8.3) 04/06/18 06:00 Albumin 3.6 gm/dL (3.7-5.3) L 04/06/18 06:00 Globulin 3.0 gm/dL 04/06/18 06:00 Albumin/Globulin Ratio 1.2 (1.0-1.8) 04/06/18 06:00 TSH 3.82 uIU/ml (0.34-5.60) 04/05/18 13:29 Urine Source CATH 04/05/18 14:05 Urine Color YELLOW 04/05/18 14:05 Urine Clarity CLOUDY (CLEAR) H 04/05/18 14:05 Urine pH 8.0 (4.6 - 8.0) 04/05/18 14:05 Ur Specific [place] 1.010 (1.005-1.030) 04/05/18 14:05 Urine Protein TRACE mg/dL (NEGATIVE) 04/05/18 14:05 Urine Glucose (UA) NEGATIVE mg/dL (NEGATIVE) 04/05/18 14:05 Urine Ketones NEGATIVE mg/dL (NEGATIVE) 04/05/18 14:05 Urine Blood LARGE (NEGATIVE) H 04/05/18 14:05 Urine Nitrate POSITIVE (NEGATIVE) H 04/05/18 14:05 Urine Bilirubin NEGATIVE (NEGATIVE) 04/05/18 14:05 Urine Urobilinogen 0.2 E.U./dL (0.2 - 1.0) 04/05/18 14:05 Ur Leukocyte Esterase MODERATE (NEGATIVE) H 04/05/18 14:05 Urine RBC 2-5 /hpf (0-5) 04/05/18 14:05 Urine WBC 50-100 /hpf (0-5) H 04/05/18 14:05 Ur Epithelial Cells NONE SEEN /lpf (FEW) 04/05/18 14:05 Urine Bacteria MANY /hpf (NONE SEEN) H 04/05/18 14:05 - Physical Exam Vitals and I&O: Vital Signs Temp 99 F 04/07/18 20:00 Pulse 91 04/07/18 20:00 Resp 18 04/07/18 20:00 BP 124/64 04/07/18 20:00 Pulse Ox 94 04/07/18 20:00 Intake & Output 04/07/18 04/07/18 04/08/18 06:59 18:59 06:59 Intake Total 50 1000 Output Total 1 Balance 50 999 Weight (lbs) 50.349 kg Intake: Intake, IV Amount 50 1000 D5-0.45NS 1,000 ml @ 70 1000 mls/hr IV .[id number] [facility] Rx #:[id number] cefTRIAXone 1 gm In 50 Sodium Chloride 0.9% 50 ml @ 100 mls/hr IV Q24HR [facility] Rx#:[id number] Output: Stool 1 Other: Stool Characteristics Formed Formed Hard Hard Weight Source Bedscale Active Medications: Current Medications Ascorbic Acid (Vitamin C) 500 mg GT DAILY [facility] Stop: 06/05/18 17:29 Last Admin: 04/07/18 09:02 Dose: 500 mg Benztropine Mesylate (Cogentin) 0.5 mg GT BID [facility] Stop: 06/05/18 17:29 Last Admin: 04/07/18 18:16 Dose: 0.5 mg Buspirone HCl (Buspar) 10 mg GT TID [facility]; Protocol Stop: 06/05/18 20:59 Last Admin: 04/07/18 20:50 Dose: 10 mg Cyclobenzaprine HCl (Flexeril) 5 mg GT BID [facility] Stop: 06/05/18 17:29 Last Admin: 04/07/18 18:16 Dose: 5 mg Dextromethorphan/Quinidine (Nuedexta 20mg-10mg) 1 cap GT HS [facility] Stop: 06/05/18 20:59 Last Admin: 04/07/18 20:51 Dose: 1 cap Docusate Sodium (Colace) 100 mg GT DAILY [facility] Stop: 06/05/18 17:44 Last Admin: 04/07/18 09:01 Dose: 100 mg Gabapentin (Neurontin) 200 mg GT BID [facility] Stop: 06/05/18 17:44 Last Admin: 04/07/18 18:16 Dose: 200 mg Gabapentin (Neurontin) 300 mg GT [facility] Stop: 06/05/18 20:59 Last Admin: 04/07/18 20:51 Dose: 300 mg Ceftriaxone Sodium 1 gm/ (Sodium Chloride) 50 mls @ 100 mls/hr IV Q24HR [facility] Stop: 06/04/18 17:59 Last Admin: 04/07/18 18:43 Dose: 100 mls/hr Dextrose/Sodium Chloride (D5-0.45ns) 1,000 mls @ 70 mls/hr IV .[id number] [facility] Stop: 06/04/18 17:17 Last Admin: 04/07/18 18:45 Dose: 70 mls/hr Lidocaine (Lidoderm 5% Patch) 1 patch TD DAILY [facility] Stop: 06/05/18 17:44 Last Admin: 04/07/18 10:48 Dose: 1 patch Lorazepam (Ativan) 0.5 mg GT Q6HR PRN; Protocol PRN Reason: Anxiety Stop: 06/05/18 17:29 Last Admin: 04/06/18 21:47 Dose: 0.5 mg Metoprolol Tartrate (Lopressor) 12.5 mg GT BID [facility] Stop: 06/05/18 17:44 Last Admin: 04/07/18 18:17 Dose: 12.5 mg Mirtazapine (Remeron) 22.5 mg GT HS [facility] Stop: 06/05/18 20:59 Last Admin: 04/07/18 20:51 Dose: 22.5 mg Miscellaneous (Amino Acids/Protein Hydrolys [Pro-Stat Sugar Free Liquid]) 30 ml GT BID [facility] Stop: 06/05/18 17:29 Miscellaneous (Fenofibric Acid [Fenofibric Acid]) 54 mg GT HS [facility] Stop: 06/05/18 20:59 Miscellaneous (Lurasidone Hcl [Latuda]) 10 mg GT QPM [facility] Stop: 06/06/18 16:59 Miscellaneous (Melatonin [Melatonin]) 10 mg GT HS [facility] Stop: 06/05/18 20:59 Pantoprazole Sodium (Protonix) 40 mg GT BID [facility] Stop: 06/05/18 17:44 Last Admin: 04/07/18 18:38 Dose: 40 mg Tramadol HCl (Ultram) 50 mg GT Q6HR PRN PRN Reason: Pain (Moderate) Stop: 06/05/18 00:25 Last Admin: 04/06/18 15:52 Dose: 50 mg Tramadol HCl (Ultram) 50 mg GT Q6HR PRN PRN Reason: Pain (Moderate) Stop: 06/05/18 17:29 General: no acute distress, cachectic HEENT: atraumatic, normocephalic, PERRLA Neck: supple, no thyromegaly Cardiovascular: S1S2, regular Lungs: clear to auscultation bilaterally, clear to percussion Abdomen: soft, no tender, no distended, no rebound Extremities: no cyanosis, no clubbing, no edema Neurological: awake, alert Skin: intact - Procedures Procedures: Procedures Procedure Code Date GROUP PSYCHOTHERAPY GZHZZZZ 12/13/14 Infectious Disease Assmt/Plan - Assessment Assessment: 1. Urinary tract infection. GNR. 2. Agitation. 3. Schizoaffective disorder. 4. Hypertension. 5. Dysphagia, G-tube placement. - Plan Plan: CPm. depending on the culture report will define final antibiotic therapy. Nutritional Asmnt/Malnutr-PDOC - Dietary Evaluation Malnutrition Findings (Please click <Entered> for more info): Nutritional Asmnt/Malnutrition Start: 04/06/18 13: 49 Text: Status: Complete Freq: Protocol: Document 02/04/19 13:49 [email or web address] (Rec: 04/06/18 14:01 [email or web address]) Nutritional Asmnt/Malnutrition Patient General Information Nutritional Screening High Risk Consult Diagnosis UTI, dehydration, ALOC Pertinent Medical Hx/Surgical Hx PUD/GERD, parkinson, schizophrenia Subjective Information Consult received for TF and jayesh 11. Pt seen lying in bed at time of visit. Observed TF running at 58ml/hr at this time. Per nurse note, pt tolerated TF well and no residual noted. Current Diet Order/ Nutrition Support Jevity 1.2 at 58ml/hr x 20hr, flush with water 100cc q6hr Pertinent Medications D5-0.45ns Pertinent Labs 2/4 Glucose 109, alb 3.6 2/3 BUN 26, Alb 3.6 Nutritional Hx/Data Height 1.55 m Height (Calculated Centimeters) 154.9 Current Weight (lbs) 50.802 kg Weight (Calculated Kilograms) 50.8 Weight (Calculated Grams) 24986.3 [place] Body Weight 105 Body Mass Index (BMI) 21.1 Weight Status Approriate GI Symptoms GI Symptoms None Last BM not indicated Usual diet at home Jevity 1.5 at 58ml/hr x 20hr Skin Integrity/Comment: reddened to vagina, left lower leg and lower back, lesion to left knee, scar to left leg and right knee. Estimated Nutritional Goals BEE in Kcals: Using Current wt Calories/Kcals/Kg 25-30 Kcals Calculated 3442-2781 Protein: Using Current wt Protein g/k-1.2 Fluid: ml 1250-1500ml (1ml/kcal) Nutritional Problem No current Nutrition Prob Problem N/A Intervention/Recommendation Comments 1. Continue with current TF regimen. It provides 1200kcal, 54g protein, 888ml free water , meeting 100% of nutritional needs 2. Monitor TF rate, tolerance, wt, skin integrity and labs 3. F/U as moderate risk in 3-5 days, 04/09-04/11 Expected Outcomes/Goals Expected Outcomes/Goals 1. Pt to meet at least 90% of nutritional needs via nutrition support with tolerance 2. Wt stability, skin to remain intact, labs to approach WNL.
[2018-04-08 06:56] LABS: % BASOPHILS 0.9 % (0.0-2.0); % EOSINOPHILS 1.9 % (0.0-5.0); % LYMPHOCYTES 22.7 % (20.0-50.0); % MONOCYTES 8.7 % (2.0-10.0); % NEUTROPHILS 65.8 % (40.0-80.0); BASOPHILE ABSOLUTE 0.1 Th/cumm (0-0.2); EOSINOPHILE ABSOLUTE 0.1 Th/cmm (0.1-0.4); HEMATOCRIT 34.9 % (41.0-60); HEMOGLOBIN 11.4 gm/dL (12-16); LYMPHOCYTE ABSOLUTE 1.5 Th/cmm (1.5-3.0); MEAN CELL VOLUME 86.9 fl (81-100); MEAN CORPUSCULAR HEMOGLOBIN 28.5 pg (27.0-31.0); MEAN CORPUSCULAR HGB CONC 32.8 pg (28.0-36.0); MEAN PLATELET VOLUME 10.3 fl; MONOCYTE ABSOLUTE 0.6 Th/cmm (0.3-1.0); NEUTROPHILE ABSOLUTE 4.1 Th/cmm (1.8-8.0); PLATELET COUNT 171 Th/cmm (150-400); RED BLOOD COUNT 4.01 Mil/cmm (3.80-5.20); RED CELL DISTRIBUTION WIDTH 13.1 % (11.5-20.0); WHITE BLOOD COUNT 6.4 Th/cmm (4.8-10.8)
[2018-04-08 07:09] LABS: ALB/GLOB RATIO 1.3 (1.0-1.8); ALBUMIN 3.5 gm/dL (3.7-5.3); ALKALINE PHOSPHATASE 62 U/L (34-104); ANION GAP 11.2 (7.0-16.0); BILIRUBIN,TOTAL 0.2 mg/dL (0.3-1.0); BUN - UREA NITROGEN 25 mg/dL (7-25); CALCIUM SERUM 8.7 mg/dL (8.6-10.3); CARBON DIOXIDE 25.8 mEq/L (21.0-31.0); CHLORIDE 108 mEq/L (98-107); CREATININE - SERUM 0.5 mg/dL (0.6-1.2); GLUCOSE 102 mg/dL (70-105); SGOT 16 U/L (13-39); SGPT/ALT 11 U/L (7-52); SODIUM SERUM 141 mEq/L (136-145); TOTAL PROTEIN,SERUM 6.2 gm/dL (6.0-8.3)
[2018-04-08] MEDS: Pantoprazole 40 mg/Packet GT SCH (09:42)
[2018-04-08] MEDS: Docusate Sodium 100 mg/10 mL UD GT SCH (09:42)
--- NOTE | 2018-04-08 10:07 | Infectious Disease Prog Note ---
Infectious Disease Subjective - Review of Systems Service Date: 04/08/18 Subjective: no new change, no fever. Infectious Disease Objective - Results Result Diagrams: 04/08/18 06:05 04/08/18 06:05 Recent Labs: Laboratory Last Values WBC 6.4 Th/cmm (4.8-10.8) 04/08/18 06:05 RBC 4.01 Mil/cmm (3.80-5.20) 04/08/18 06:05 Hgb 11.4 gm/dL (12-16) L 04/08/18 06:05 Hct 34.9 % (41.0-60) L 04/08/18 06:05 MCV 86.9 fl (81-100) 04/08/18 06:05 MCH 28.5 pg (27.0-31.0) 04/08/18 06:05 MCHC Differential 32.8 pg (28.0-36.0) 04/08/18 06:05 RDW 13.1 % (11.5-20.0) 04/08/18 06:05 Plt Count 171 Th/cmm (150-400) 04/08/18 06:05 MPV 10.3 fl 04/08/18 06:05 Neutrophils % 65.8 % (40.0-80.0) 04/08/18 06:05 Lymphocytes % 22.7 % (20.0-50.0) 04/08/18 06:05 Monocytes % 8.7 % (2.0-10.0) 04/08/18 06:05 Eosinophils % 1.9 % (0.0-5.0) 04/08/18 06:05 Basophils % 0.9 % (0.0-2.0) 04/08/18 06:05 Sodium 141 mEq/L (136-145) 04/08/18 06:05 Potassium 4.0 mEq/L (3.5-5.1) 04/08/18 06:05 Chloride 108 mEq/L (98-107) H 04/08/18 06:05 Carbon Dioxide 25.8 mEq/L (21.0-31.0) 04/08/18 06:05 Anion Gap 11.2 (7.0-16.0) 04/08/18 06:05 BUN 25 mg/dL (7-25) 04/08/18 06:05 Creatinine 0.5 mg/dL (0.6-1.2) L 04/08/18 06:05 Est GFR ( Amer) TNP 04/08/18 06:05 Est GFR (Non-Af Amer) TNP 04/08/18 06:05 BUN/Creatinine Ratio 50.0 04/08/18 06:05 Glucose 102 mg/dL (70-105) 04/08/18 06:05 POC Glucose 80 MG/DL (70 - 105) 04/05/18 17:48 Whole Bld Lactic Acid 0.64 mmol/L (0.60-1.99) 04/05/18 13:29 Calcium 8.7 mg/dL (8.6-10.3) 04/08/18 06:05 Phosphorus 3.6 mg/dL (2.5-5.0) 04/05/18 13:29 Magnesium 2.0 mg/dL (1.9-2.7) 04/05/18 13:29 Total Bilirubin 0.2 mg/dL (0.3-1.0) L 04/08/18 06:05 AST 16 U/L (13-39) 04/08/18 06:05 ALT 11 U/L (7-52) 04/08/18 06:05 Alkaline Phosphatase 62 U/L (34-104) 04/08/18 06:05 Troponin I 0.01 ng/mL (0.01-0.05) 04/05/18 13:29 Total Protein 6.2 gm/dL (6.0-8.3) 04/08/18 06:05 Albumin 3.5 gm/dL (3.7-5.3) L 04/08/18 06:05 Globulin 2.7 gm/dL 04/08/18 06:05 Albumin/Globulin Ratio 1.3 (1.0-1.8) 04/08/18 06:05 TSH 3.82 uIU/ml (0.34-5.60) 04/05/18 13:29 Urine Source CATH 04/05/18 14:05 Urine Color YELLOW 04/05/18 14:05 Urine Clarity CLOUDY (CLEAR) H 04/05/18 14:05 Urine pH 8.0 (4.6 - 8.0) 04/05/18 14:05 Ur Specific [place] 1.010 (1.005-1.030) 04/05/18 14:05 Urine Protein TRACE mg/dL (NEGATIVE) 04/05/18 14:05 Urine Glucose (UA) NEGATIVE mg/dL (NEGATIVE) 04/05/18 14:05 Urine Ketones NEGATIVE mg/dL (NEGATIVE) 04/05/18 14:05 Urine Blood LARGE (NEGATIVE) H 04/05/18 14:05 Urine Nitrate POSITIVE (NEGATIVE) H 04/05/18 14:05 Urine Bilirubin NEGATIVE (NEGATIVE) 04/05/18 14:05 Urine Urobilinogen 0.2 E.U./dL (0.2 - 1.0) 04/05/18 14:05 Ur Leukocyte Esterase MODERATE (NEGATIVE) H 04/05/18 14:05 Urine RBC 2-5 /hpf (0-5) 04/05/18 14:05 Urine WBC 50-100 /hpf (0-5) H 04/05/18 14:05 Ur Epithelial Cells NONE SEEN /lpf (FEW) 04/05/18 14:05 Urine Bacteria MANY /hpf (NONE SEEN) H 04/05/18 14:05 - Physical Exam Vitals and I&O: Vital Signs Temp 97.4 F 04/08/18 08:33 Pulse 85 04/08/18 09:44 Resp 19 04/08/18 08:33 BP 134/85 04/08/18 09:44 Pulse Ox 97 04/08/18 08:33 Intake & Output 04/07/18 04/08/18 04/08/18 18:59 06:59 18:59 Intake Total 1000 650 Output Total 1 Balance 999 650 Weight (lbs) 50.349 kg 43.998 kg Intake: Intake, IV Amount 1000 D5-0.45NS 1,000 ml @ 70 1000 mls/hr IV .[id number] REPLACED BY [facility] Rx #:[id number] Tube Feeding 650 Output: Stool 1 Other: # Voids 2 # Bowel Movements 1 Stool Characteristics Formed Formed Hard Hard Weight Source Bedscale Bedscale Active Medications: Current Medications Ascorbic Acid (Vitamin C) 500 mg GT DAILY REPLACED BY [facility] Stop: 06/05/18 17:29 Last Admin: 04/08/18 09:42 Dose: 500 mg Benztropine Mesylate (Cogentin) 0.5 mg GT BID REPLACED BY [facility] Stop: 06/05/18 17:29 Last Admin: 04/08/18 09:42 Dose: 0.5 mg Buspirone HCl (Buspar) 10 mg GT TID ROBER; Protocol Stop: 06/05/18 20:59 Last Admin: 04/08/18 09:42 Dose: 10 mg Cyclobenzaprine HCl (Flexeril) 5 mg GT BID REPLACED BY [facility] Stop: 06/05/18 17:29 Last Admin: 04/08/18 09:43 Dose: 5 mg Dextromethorphan/Quinidine (Nuedexta 20mg-10mg) 1 cap GT HS REPLACED BY [facility] Stop: 06/05/18 20:59 Last Admin: 04/07/18 20:51 Dose: 1 cap Docusate Sodium (Colace) 100 mg GT DAILY REPLACED BY [facility] Stop: 06/05/18 17:44 Last Admin: 04/08/18 09:42 Dose: 100 mg Fenofibrate (Tricor) 134 mg GT [facility] Stop: 06/07/18 20:59 Gabapentin (Neurontin) 200 mg GT BID REPLACED BY [facility] Stop: 06/05/18 17:44 Last Admin: 04/08/18 09:43 Dose: 200 mg Gabapentin (Neurontin) 300 mg GT [facility] Stop: 06/05/18 20:59 Last Admin: 04/07/18 20:51 Dose: 300 mg Ceftriaxone Sodium 1 gm/ (Sodium Chloride) 50 mls @ 100 mls/hr IV Q24HR REPLACED BY [facility] Stop: 06/04/18 17:59 Last Admin: 04/07/18 18:43 Dose: 100 mls/hr Dextrose/Sodium Chloride (D5-0.45ns) 1,000 mls @ 70 mls/hr IV .[id number] REPLACED BY [facility] Stop: 06/04/18 17:17 Last Admin: 04/07/18 18:45 Dose: 70 mls/hr Lidocaine (Lidoderm 5% Patch) 1 patch TD DAILY REPLACED BY [facility] Stop: 06/05/18 17:44 Last Admin: 04/07/18 10:48 Dose: 1 patch Lorazepam (Ativan) 0.5 mg GT Q6HR PRN; Protocol PRN Reason: Anxiety Stop: 06/05/18 17:29 Last Admin: 04/06/18 21:47 Dose: 0.5 mg Metoprolol Tartrate (Lopressor) 12.5 mg GT BID REPLACED BY [facility] Stop: 06/05/18 17:44 Last Admin: 04/08/18 09:44 Dose: 12.5 mg Mirtazapine (Remeron) 22.5 mg GT HS [facility] Stop: 06/05/18 20:59 Last Admin: 04/07/18 20:51 Dose: 22.5 mg Miscellaneous (Lurasidone Hcl [Latuda]) 10 mg GT QPM [facility] Stop: 06/06/18 16:59 Miscellaneous (Melatonin [Melatonin]) 10 mg GT HS [facility] Stop: 06/05/18 20:59 Pantoprazole Sodium (Protonix) 40 mg GT BID [facility] Stop: 06/05/18 17:44 Last Admin: 04/08/18 09:42 Dose: 40 mg Tramadol HCl (Ultram) 50 mg GT Q6HR PRN PRN Reason: Pain (Moderate) Stop: 06/05/18 17:29 General: no acute distress, cachectic HEENT: atraumatic, normocephalic, PERRLA, EOMI, moist mucous membrane Neck: supple, no thyromegaly Cardiovascular: S1S2, regular Lungs: clear to auscultation bilaterally, clear to percussion Abdomen: soft, no tender, no distended Extremities: no cyanosis, no clubbing, no edema Neurological: awake, alert Skin: intact - Procedures Procedures: Procedures Procedure Code Date GROUP PSYCHOTHERAPY GZHZZZZ 12/13/14 Infectious Disease Assmt/Plan - Assessment Assessment: 1. Urinary tract infection. GNR. 2. Agitation. 3. Schizoaffective disorder. 4. Hypertension. 5. Dysphagia, G-tube placement. - Plan Plan: CPm. depending on the culture report will define final antibiotic therapy. Nutritional Asmnt/Malnutr-PDOC - Dietary Evaluation Malnutrition Findings (Please click <Entered> for more info): Nutritional Asmnt/Malnutrition Start: 04/06/18 13: 49 Text: Status: Complete Freq: Protocol: Document 04/06/18 13:49 MITZI (Rec: 04/06/18 14:01 [email or web address]) Nutritional Asmnt/Malnutrition Patient General Information Nutritional Screening High Risk Consult Diagnosis UTI, dehydration, ALOC Pertinent Medical Hx/Surgical Hx PUD/GERD, parkinson, schizophrenia Subjective Information Consult received for TF and jayesh 11. Pt seen lying in bed at time of visit. Observed TF running at 58ml/hr at this time. Per nurse note, pt tolerated TF well and no residual noted. Current Diet Order/ Nutrition Support Jevity 1.2 at 58ml/hr x 20hr, flush with water 100cc q6hr Pertinent Medications D5-0.45ns Pertinent Labs 2/4 Glucose 109, alb 3.6 2/3 BUN 26, Alb 3.6 Nutritional Hx/Data Height 1.55 m Height (Calculated Centimeters) 154.9 Current Weight (lbs) 50.802 kg Weight (Calculated Kilograms) 50.8 Weight (Calculated Grams) 01042.3 [place] Body Weight 105 Body Mass Index (BMI) 21.1 Weight Status Approriate GI Symptoms GI Symptoms None Last BM not indicated Usual diet at home Jevity 1.5 at 58ml/hr x 20hr Skin Integrity/Comment: reddened to vagina, left lower leg and lower back, lesion to left knee, scar to left leg and right knee. Estimated Nutritional Goals BEE in Kcals: Using Current wt Calories/Kcals/Kg 25-30 Kcals Calculated 0103-5845 Protein: Using Current wt Protein g/k-1.2 Fluid: ml 1250-1500ml (1ml/kcal) Nutritional Problem No current Nutrition Prob Problem N/A Intervention/Recommendation Comments 1. Continue with current TF regimen. It provides 1200kcal, 54g protein, 888ml free water , meeting 100% of nutritional needs 2. Monitor TF rate, tolerance, wt, skin integrity and labs 3. F/U as moderate risk in 3-5 days, 04/09-04/11 Expected Outcomes/Goals Expected Outcomes/Goals 1. Pt to meet at least 90% of nutritional needs via nutrition support with tolerance 2. Wt stability, skin to remain intact, labs to approach WNL.
[2018-04-08] MEDS: Lidocaine 5% Patch TD SCH (10:18)
[2018-04-08] MEDS: D5-0.45NS 1,000 ML IV SCH (10:19)
--- NOTE | 2018-04-08 16:16 | Progress Notes ---
DATE: 04/07/2018 SUBJECTIVE: The patient is calm, more cooperative. Mood "okay." States she slept okay. Getting tube feeding. Denying any hunger. Less concerns about impulsivity, seems to be doing somewhat better. No restraints noted. Medications were noted. MENTAL STATUS EXAMINATION: Answering questions more appropriately. No SI, no HI. No overt psychosis. Some concerns about impulsivity, but has been calm over the past 24 hours. DIAGNOSES: Unchanged. RECOMMENDATIONS AND PLAN: I did review her medications. We will continue to monitor. If there are any behavioral disturbances or agitation, she may need transfer to [facility]. [facility]# [id number]
--- NOTE | 2018-04-08 16:20 | General Progress Note ---
Subjective - Review of Systems Service Date: 04/08/18 Subjective: Patient seen and examined doing better afebrile urine culture positive for Pseudomonas Objective - Results Result Diagrams: 04/08/18 06:05 04/08/18 06:05 Recent Labs: Laboratory Last Values WBC 6.4 Th/cmm (4.8-10.8) 04/08/18 06:05 RBC 4.01 Mil/cmm (3.80-5.20) 04/08/18 06:05 Hgb 11.4 gm/dL (12-16) L 04/08/18 06:05 Hct 34.9 % (41.0-60) L 04/08/18 06:05 MCV 86.9 fl (81-100) 04/08/18 06:05 MCH 28.5 pg (27.0-31.0) 04/08/18 06:05 MCHC Differential 32.8 pg (28.0-36.0) 04/08/18 06:05 RDW 13.1 % (11.5-20.0) 04/08/18 06:05 Plt Count 171 Th/cmm (150-400) 04/08/18 06:05 MPV 10.3 fl 04/08/18 06:05 Neutrophils % 65.8 % (40.0-80.0) 04/08/18 06:05 Lymphocytes % 22.7 % (20.0-50.0) 04/08/18 06:05 Monocytes % 8.7 % (2.0-10.0) 04/08/18 06:05 Eosinophils % 1.9 % (0.0-5.0) 04/08/18 06:05 Basophils % 0.9 % (0.0-2.0) 04/08/18 06:05 Sodium 141 mEq/L (136-145) 04/08/18 06:05 Potassium 4.0 mEq/L (3.5-5.1) 04/08/18 06:05 Chloride 108 mEq/L (98-107) H 04/08/18 06:05 Carbon Dioxide 25.8 mEq/L (21.0-31.0) 04/08/18 06:05 Anion Gap 11.2 (7.0-16.0) 04/08/18 06:05 BUN 25 mg/dL (7-25) 04/08/18 06:05 Creatinine 0.5 mg/dL (0.6-1.2) L 04/08/18 06:05 Est GFR ( Amer) TNP 04/08/18 06:05 Est GFR (Non-Af Amer) TNP 04/08/18 06:05 BUN/Creatinine Ratio 50.0 04/08/18 06:05 Glucose 102 mg/dL (70-105) 04/08/18 06:05 POC Glucose 80 MG/DL (70 - 105) 04/05/18 17:48 Whole Bld Lactic Acid 0.64 mmol/L (0.60-1.99) 04/05/18 13:29 Calcium 8.7 mg/dL (8.6-10.3) 04/08/18 06:05 Phosphorus 3.6 mg/dL (2.5-5.0) 04/05/18 13:29 Magnesium 2.0 mg/dL (1.9-2.7) 04/05/18 13:29 Total Bilirubin 0.2 mg/dL (0.3-1.0) L 04/08/18 06:05 AST 16 U/L (13-39) 04/08/18 06:05 ALT 11 U/L (7-52) 04/08/18 06:05 Alkaline Phosphatase 62 U/L (34-104) 04/08/18 06:05 Troponin I 0.01 ng/mL (0.01-0.05) 04/05/18 13:29 Total Protein 6.2 gm/dL (6.0-8.3) 04/08/18 06:05 Albumin 3.5 gm/dL (3.7-5.3) L 04/08/18 06:05 Globulin 2.7 gm/dL 04/08/18 06:05 Albumin/Globulin Ratio 1.3 (1.0-1.8) 04/08/18 06:05 TSH 3.82 uIU/ml (0.34-5.60) 04/05/18 13:29 Urine Source CATH 04/05/18 14:05 Urine Color YELLOW 04/05/18 14:05 Urine Clarity CLOUDY (CLEAR) H 04/05/18 14:05 Urine pH 8.0 (4.6 - 8.0) 04/05/18 14:05 Ur Specific [place] 1.010 (1.005-1.030) 04/05/18 14:05 Urine Protein TRACE mg/dL (NEGATIVE) 04/05/18 14:05 Urine Glucose (UA) NEGATIVE mg/dL (NEGATIVE) 04/05/18 14:05 Urine Ketones NEGATIVE mg/dL (NEGATIVE) 04/05/18 14:05 Urine Blood LARGE (NEGATIVE) H 04/05/18 14:05 Urine Nitrate POSITIVE (NEGATIVE) H 04/05/18 14:05 Urine Bilirubin NEGATIVE (NEGATIVE) 04/05/18 14:05 Urine Urobilinogen 0.2 E.U./dL (0.2 - 1.0) 04/05/18 14:05 Ur Leukocyte Esterase MODERATE (NEGATIVE) H 04/05/18 14:05 Urine RBC 2-5 /hpf (0-5) 04/05/18 14:05 Urine WBC 50-100 /hpf (0-5) H 04/05/18 14:05 Ur Epithelial Cells NONE SEEN /lpf (FEW) 04/05/18 14:05 Urine Bacteria MANY /hpf (NONE SEEN) H 04/05/18 14:05 - Physical Exam Vitals and I&O: Vital Signs Temp 98.1 F 04/08/18 16:12 Pulse 71 04/08/18 16:12 Resp 18 04/08/18 16:12 BP 141/68 04/08/18 16:12 Pulse Ox 97 04/08/18 16:12 Intake & Output 04/07/18 04/08/18 04/08/18 18:59 06:59 18:59 Intake Total 3731 895 3050 Output Total 1 Balance 840 382 4414 Weight (lbs) 50.349 kg 43.998 kg Intake: Intake, IV Amount 1000 1000 D5-0.45NS 1,000 ml @ 70 1000 1000 mls/hr IV .[id number] [facility] Rx #:[id number] Tube Feeding 650 Output: Stool 1 Other: # Voids 2 # Bowel Movements 1 Stool Characteristics Formed Formed Hard Hard Weight Source Bedscale Bedscale Active Medications: Current Medications Ascorbic Acid (Vitamin C) 500 mg GT DAILY [facility] Stop: 06/05/18 17:29 Last Admin: 04/08/18 09:42 Dose: 500 mg Benztropine Mesylate (Cogentin) 0.5 mg GT BID [facility] Stop: 06/05/18 17:29 Last Admin: 04/08/18 09:42 Dose: 0.5 mg Buspirone HCl (Buspar) 10 mg GT TID ROBER; Protocol Stop: 06/05/18 20:59 Last Admin: 04/08/18 14:17 Dose: 10 mg Cyclobenzaprine HCl (Flexeril) 5 mg GT BID [facility] Stop: 06/05/18 17:29 Last Admin: 04/08/18 09:43 Dose: 5 mg Dextromethorphan/Quinidine (Nuedexta 20mg-10mg) 1 cap GT HS [facility] Stop: 06/05/18 20:59 Last Admin: 04/07/18 20:51 Dose: 1 cap Docusate Sodium (Colace) 100 mg GT DAILY [facility] Stop: 06/05/18 17:44 Last Admin: 04/08/18 09:42 Dose: 100 mg Fenofibrate (Tricor) 134 mg GT [facility] Stop: 06/07/18 20:59 Gabapentin (Neurontin) 200 mg GT BID [facility] Stop: 06/05/18 17:44 Last Admin: 04/08/18 09:43 Dose: 200 mg Gabapentin (Neurontin) 300 mg GT [facility] Stop: 06/05/18 20:59 Last Admin: 04/07/18 20:51 Dose: 300 mg Ceftriaxone Sodium 1 gm/ (Sodium Chloride) 50 mls @ 100 mls/hr IV Q24HR [facility] Stop: 06/04/18 17:59 Last Admin: 04/07/18 18:43 Dose: 100 mls/hr Dextrose/Sodium Chloride (D5-0.45ns) 1,000 mls @ 70 mls/hr IV .[id number] [facility] Stop: 06/04/18 17:17 Last Admin: 04/08/18 10:19 Dose: 70 mls/hr Lidocaine (Lidoderm 5% Patch) 1 patch TD DAILY [facility] Stop: 06/05/18 17:44 Last Admin: 04/08/18 10:18 Dose: 1 patch Lorazepam (Ativan) 0.5 mg GT Q6HR PRN; Protocol PRN Reason: Anxiety Stop: 06/05/18 17:29 Last Admin: 04/06/18 21:47 Dose: 0.5 mg Metoprolol Tartrate (Lopressor) 12.5 mg GT BID [facility] Stop: 06/05/18 17:44 Last Admin: 04/08/18 09:44 Dose: 12.5 mg Mirtazapine (Remeron) 22.5 mg GT HS [facility] Stop: 06/05/18 20:59 Last Admin: 04/07/18 20:51 Dose: 22.5 mg Miscellaneous (Lurasidone Hcl [Latuda]) 10 mg GT QPM [facility] Stop: 06/06/18 16:59 Miscellaneous (Melatonin [Melatonin]) 10 mg GT HS [facility] Stop: 06/05/18 20:59 Pantoprazole Sodium (Protonix) 40 mg GT BID [facility] Stop: 06/05/18 17:44 Last Admin: 04/08/18 09:42 Dose: 40 mg Tramadol HCl (Ultram) 50 mg GT Q6HR PRN PRN Reason: Pain (Moderate) Stop: 06/05/18 17:29 Cardiovascular: Regular rate Lungs: Clear to auscultation Abdomen: Soft, no Tender - Procedures Procedures: Procedures Procedure Code Date GROUP PSYCHOTHERAPY GZHZZZZ 12/13/14 Assessment/Plan - Assessment Assessment: MDRO UTI Parkinsons disease HTN Neuropathy Chronic pain syndrome - Plan Plan: Rocephine dc'd Meropenem started SNIF DC planning dw the DCP Monitor BP Plan of care discussed with nursing staff Nutritional Asmnt/Malnutr-PDOC - Dietary Evaluation Malnutrition Findings (Please click <Entered> for more info): Nutritional Asmnt/Malnutrition Start: 04/06/18 13: 49 Text: Status: Complete Freq: Protocol: Document 04/06/18 13:49 [email or web address] (Rec: 04/06/18 14:01 [email or web address]) Nutritional Asmnt/Malnutrition Patient General Information Nutritional Screening High Risk Consult Diagnosis UTI, dehydration, ALOC Pertinent Medical Hx/Surgical Hx PUD/GERD, parkinson, schizophrenia Subjective Information Consult received for TF and jayesh 11. Pt seen lying in bed at time of visit. Observed TF running at 58ml/hr at this time. Per nurse note, pt tolerated TF well and no residual noted. Current Diet Order/ Nutrition Support Jevity 1.2 at 58ml/hr x 20hr, flush with water 100cc q6hr Pertinent Medications D5-0.45ns Pertinent Labs 2/4 Glucose 109, alb 3.6 2/3 BUN 26, Alb 3.6 Nutritional Hx/Data Height 1.55 m Height (Calculated Centimeters) 154.9 Current Weight (lbs) 50.802 kg Weight (Calculated Kilograms) 50.8 Weight (Calculated Grams) 91302.3 [place] Body Weight 105 Body Mass Index (BMI) 21.1 Weight Status Approriate GI Symptoms GI Symptoms None Last BM not indicated Usual diet at home Jevity 1.5 at 58ml/hr x 20hr Skin Integrity/Comment: reddened to vagina, left lower leg and lower back, lesion to left knee, scar to left leg and right knee. Estimated Nutritional Goals BEE in Kcals: Using Current wt Calories/Kcals/Kg 25-30 Kcals Calculated 1000-1655 Protein: Using Current wt Protein g/k-1.2 Fluid: ml 1250-1500ml (1ml/kcal) Nutritional Problem No current Nutrition Prob Problem N/A Intervention/Recommendation Comments 1. Continue with current TF regimen. It provides 1200kcal, 54g protein, 888ml free water , meeting 100% of nutritional needs 2. Monitor TF rate, tolerance, wt, skin integrity and labs 3. F/U as moderate risk in 3-5 days, 04/09-04/11 Expected Outcomes/Goals Expected Outcomes/Goals 1. Pt to meet at least 90% of nutritional needs via nutrition support with tolerance 2. Wt stability, skin to remain intact, labs to approach WNL.
[2018-04-08] MEDS ORDERED: Meropenem 500 MG in Sodium Chloride 0.9% 100 ML IV SCH (17:00)
[2018-04-08] MEDS: Fenofibrate, Micronized 134 mg Cap GT SCH (20:59)
[2018-04-08] MEDS: Dextromethorphan/Quinidine 20mg/10mg Cap GT SCH (20:59)
--- NOTE | 2018-04-09 06:39 | Consultation ---
DATE OF CONSULTATION: 04/08/2018 HISTORY OF PRESENT ILLNESS: The patient is seen today, noted by Dr. Ward to be doing better, afebrile, behavioral disturbances. Certainly dissipating, decreasing. She is able to verbalize her needs more, difficult to understand, but notes her mood is "okay," knows her daughter came to visit her yesterday and she was happy about that. The patient resting comfortably in no distress noted. MENTAL STATUS EXAMINATION: Stated age. Flexion noted. Mood "okay." Thought processes were tangential, but redirectable. No overt SI or HI. No current psychosis. PROVISIONAL DIAGNOSIS: Schizoaffective versus schizophrenia per documentation. RECOMMENDATIONS AND PLAN: The patient seems to be calmer, seems to be improving from a psychiatric perspective. Continue to monitor. Continue medications. The patient has behavioral disturbances, transferred to [facility]. The patient remains calm, okay to step down through fdc. JOB# [id number]
[2018-04-09 06:46] LABS: % BASOPHILS 0.6 % (0.0-2.0); % EOSINOPHILS 0.3 % (0.0-5.0); % LYMPHOCYTES 12.9 % (20.0-50.0); % MONOCYTES 7.4 % (2.0-10.0); % NEUTROPHILS 78.8 % (40.0-80.0); HEMATOCRIT 39.3 % (41.0-60); HEMOGLOBIN 13.1 gm/dL (12-16); MEAN CORPUSCULAR HEMOGLOBIN 28.4 pg (27.0-31.0); MEAN CORPUSCULAR HGB CONC 33.4 pg (28.0-36.0); MEAN PLATELET VOLUME 10.1 fl; MONOCYTE ABSOLUTE 0.6 Th/cmm (0.3-1.0); NEUTROPHILE ABSOLUTE 6.2 Th/cmm (1.8-8.0); PLATELET COUNT 193 Th/cmm (150-400); RED BLOOD COUNT 4.62 Mil/cmm (3.80-5.20); RED CELL DISTRIBUTION WIDTH 12.9 % (11.5-20.0); WHITE BLOOD COUNT 7.8 Th/cmm (4.8-10.8)
[2018-04-09 07:00] LABS: ALB/GLOB RATIO 1.3 (1.0-1.8); ALKALINE PHOSPHATASE 71 U/L (34-104); BILIRUBIN,TOTAL 0.3 mg/dL (0.3-1.0); BUN - UREA NITROGEN 29 mg/dL (7-25); CALCIUM SERUM 9.7 mg/dL (8.6-10.3); CARBON DIOXIDE 24.2 mEq/L (21.0-31.0); CHLORIDE 108 mEq/L (98-107); CREATININE - SERUM 0.5 mg/dL (0.6-1.2); GLUCOSE 106 mg/dL (70-105); POTASSIUM SERUM 4.2 mEq/L (3.5-5.1); SGOT 18 U/L (13-39); SGPT/ALT 12 U/L (7-52); SODIUM SERUM 143 mEq/L (136-145)
[2018-04-09] MEDS: Lidocaine 5% Patch TD SCH (10:10)
[2018-04-09] MEDS: Pantoprazole 40 mg/Packet GT SCH ×2 (10:11→18:06)
[2018-04-09] MEDS: Docusate Sodium 100 mg/10 mL UD GT SCH (10:12)
[2018-04-09] MEDS: BUSPAR 10 MG GT SCH ×2 (14:59→21:28)
--- NOTE | 2018-04-09 18:03 | General Progress Note ---
Subjective - Review of Systems Service Date: 04/09/18 Subjective: Patient seen and examined doing better behavior stable Objective - Results Result Diagrams: 04/09/18 06:10 04/09/18 06:10 Recent Labs: Laboratory Last Values WBC 7.8 Th/cmm (4.8-10.8) 04/09/18 06:10 RBC 4.62 Mil/cmm (3.80-5.20) 04/09/18 06:10 Hgb 13.1 gm/dL (12-16) 04/09/18 06:10 Hct 39.3 % (41.0-60) L 04/09/18 06:10 MCV 85.0 fl (81-100) 04/09/18 06:10 MCH 28.4 pg (27.0-31.0) 04/09/18 06:10 MCHC Differential 33.4 pg (28.0-36.0) 04/09/18 06:10 RDW 12.9 % (11.5-20.0) 04/09/18 06:10 Plt Count 193 Th/cmm (150-400) 04/09/18 06:10 MPV 10.1 fl 04/09/18 06:10 Neutrophils % 78.8 % (40.0-80.0) 04/09/18 06:10 Lymphocytes % 12.9 % (20.0-50.0) L 04/09/18 06:10 Monocytes % 7.4 % (2.0-10.0) 04/09/18 06:10 Eosinophils % 0.3 % (0.0-5.0) 04/09/18 06:10 Basophils % 0.6 % (0.0-2.0) 04/09/18 06:10 Sodium 143 mEq/L (136-145) 04/09/18 06:10 Potassium 4.2 mEq/L (3.5-5.1) 04/09/18 06:10 Chloride 108 mEq/L (98-107) H 04/09/18 06:10 Carbon Dioxide 24.2 mEq/L (21.0-31.0) 04/09/18 06:10 Anion Gap 15.0 (7.0-16.0) 04/09/18 06:10 BUN 29 mg/dL (7-25) H 04/09/18 06:10 Creatinine 0.5 mg/dL (0.6-1.2) L 04/09/18 06:10 Est GFR ( Amer) TNP 04/09/18 06:10 Est GFR (Non-Af Amer) TNP 04/09/18 06:10 BUN/Creatinine Ratio 58.0 04/09/18 06:10 Glucose 106 mg/dL (70-105) H 04/09/18 06:10 POC Glucose 80 MG/DL (70 - 105) 04/05/18 17:48 Whole Bld Lactic Acid 0.64 mmol/L (0.60-1.99) 04/05/18 13:29 Calcium 9.7 mg/dL (8.6-10.3) 04/09/18 06:10 Phosphorus 3.6 mg/dL (2.5-5.0) 04/05/18 13:29 Magnesium 2.0 mg/dL (1.9-2.7) 04/05/18 13:29 Total Bilirubin 0.3 mg/dL (0.3-1.0) 04/09/18 06:10 AST 18 U/L (13-39) 04/09/18 06:10 ALT 12 U/L (7-52) 04/09/18 06:10 Alkaline Phosphatase 71 U/L (34-104) 04/09/18 06:10 Troponin I 0.01 ng/mL (0.01-0.05) 04/05/18 13:29 Total Protein 7.0 gm/dL (6.0-8.3) 04/09/18 06:10 Albumin 4.0 gm/dL (3.7-5.3) 04/09/18 06:10 Globulin 3.0 gm/dL 04/09/18 06:10 Albumin/Globulin Ratio 1.3 (1.0-1.8) 04/09/18 06:10 TSH 3.82 uIU/ml (0.34-5.60) 04/05/18 13:29 Urine Source CATH 04/05/18 14:05 Urine Color YELLOW 04/05/18 14:05 Urine Clarity CLOUDY (CLEAR) H 04/05/18 14:05 Urine pH 8.0 (4.6 - 8.0) 04/05/18 14:05 Ur Specific [place] 1.010 (1.005-1.030) 04/05/18 14:05 Urine Protein TRACE mg/dL (NEGATIVE) 04/05/18 14:05 Urine Glucose (UA) NEGATIVE mg/dL (NEGATIVE) 04/05/18 14:05 Urine Ketones NEGATIVE mg/dL (NEGATIVE) 04/05/18 14:05 Urine Blood LARGE (NEGATIVE) H 04/05/18 14:05 Urine Nitrate POSITIVE (NEGATIVE) H 04/05/18 14:05 Urine Bilirubin NEGATIVE (NEGATIVE) 04/05/18 14:05 Urine Urobilinogen 0.2 E.U./dL (0.2 - 1.0) 04/05/18 14:05 Ur Leukocyte Esterase MODERATE (NEGATIVE) H 04/05/18 14:05 Urine RBC 2-5 /hpf (0-5) 04/05/18 14:05 Urine WBC 50-100 /hpf (0-5) H 04/05/18 14:05 Ur Epithelial Cells NONE SEEN /lpf (FEW) 04/05/18 14:05 Urine Bacteria MANY /hpf (NONE SEEN) H 04/05/18 14:05 - Physical Exam Vitals and I&O: Vital Signs Temp 96.8 F 04/09/18 12:00 Pulse 94 04/09/18 12:00 Resp 18 04/09/18 12:00 BP 130/85 04/09/18 12:00 Pulse Ox 97 04/09/18 12:00 Intake & Output 04/08/18 04/09/18 04/09/18 18:59 06:59 18:59 Intake Total 1000 300 Balance 1000 300 Weight (lbs) 41.413 kg Intake: Intake, IV Amount 1000 D5-0.45NS 1,000 ml @ 70 1000 mls/hr IV .[id number] [facility] Rx #:[id number] Tube Feeding 300 Other: # Voids 2 # Bowel Movements 1 Stool Characteristics Formed Formed Hard Hard Weight Source Bedscale Active Medications: Current Medications Ascorbic Acid (Vitamin C) 500 mg GT DAILY [facility] Stop: 06/05/18 17:29 Last Admin: 04/09/18 10:11 Dose: 500 mg Benztropine Mesylate (Cogentin) 0.5 mg GT BID [facility] Stop: 06/05/18 17:29 Last Admin: 04/09/18 10:11 Dose: 0.5 mg Cyclobenzaprine HCl (Flexeril) 5 mg GT BID [facility] Stop: 06/05/18 17:29 Last Admin: 04/09/18 10:13 Dose: 5 mg Dextromethorphan/Quinidine (Nuedexta 20mg-10mg) 1 cap GT [facility] Stop: 06/05/18 20:59 Last Admin: 04/08/18 20:59 Dose: 1 cap Docusate Sodium (Colace) 100 mg GT DAILY [facility] Stop: 06/05/18 17:44 Last Admin: 04/09/18 10:12 Dose: 100 mg Fenofibrate (Tricor) 134 mg GT [facility] Stop: 06/07/18 20:59 Last Admin: 04/08/18 20:59 Dose: 134 mg Gabapentin (Neurontin) 200 mg GT BID [facility] Stop: 06/05/18 17:44 Last Admin: 04/09/18 10:11 Dose: 200 mg Gabapentin (Neurontin) 300 mg GT [facility] Stop: 06/05/18 20:59 Last Admin: 04/08/18 20:59 Dose: 300 mg Meropenem 500 mg/ Sodium (Chloride) 100 mls @ 100 mls/hr IV BID [facility] Stop: 06/07/18 16:59 Lidocaine (Lidoderm 5% Patch) 1 patch TD DAILY [facility] Stop: 06/05/18 17:44 Last Admin: 04/09/18 10:10 Dose: 1 patch Lorazepam (Ativan) 0.5 mg GT Q6HR PRN; Protocol PRN Reason: Anxiety Stop: 06/05/18 17:29 Last Admin: 04/06/18 21:47 Dose: 0.5 mg Metoprolol Tartrate (Lopressor) 12.5 mg GT BID [facility] Stop: 06/05/18 17:44 Last Admin: 04/09/18 10:12 Dose: 12.5 mg Mirtazapine (Remeron) 22.5 mg GT [facility] Stop: 06/05/18 20:59 Last Admin: 04/08/18 20:59 Dose: 22.5 mg Miscellaneous (Lurasidone Hcl [Latuda]) 10 mg GT QPM [facility] Stop: 06/06/18 16:59 Miscellaneous (Melatonin [Melatonin]) 10 mg GT [facility] Stop: 06/05/18 20:59 Miscellaneous (Misc Oral Tab) 1 tab GT TID [facility]; Protocol Stop: 06/05/18 20:59 Last Admin: 04/09/18 14:59 Dose: 1 tab Pantoprazole Sodium (Protonix) 40 mg GT BID [facility] Stop: 06/05/18 17:44 Last Admin: 04/09/18 10:11 Dose: 40 mg Tramadol HCl (Ultram) 50 mg GT Q6HR PRN PRN Reason: Pain (Moderate) Stop: 06/05/18 17:29 Last Admin: 04/09/18 13:02 Dose: 50 mg Cardiovascular: Regular rate Lungs: Clear to auscultation Abdomen: Soft, no Tender - Procedures Procedures: Procedures Procedure Code Date GROUP PSYCHOTHERAPY GZHZZZZ 12/13/14 Assessment/Plan - Assessment Assessment: MDRO UTI Parkinsons disease HTN Neuropathy Chronic pain syndrome - Plan Plan: Rocephine dc'd Meropenem started SNIF DC planning dw the DCP Monitor BP Plan of care discussed with nursing staff Nutritional Asmnt/Malnutr-PDOC - Dietary Evaluation Malnutrition Findings (Please click <Entered> for more info): Nutritional Asmnt/Malnutrition Start: 04/06/18 13: 49 Text: Status: Complete Freq: Protocol: Document 04/06/18 13:49 LCHENG (Rec: 04/06/18 14:01 [email or web address]) Nutritional Asmnt/Malnutrition Patient General Information Nutritional Screening High Risk Consult Diagnosis UTI, dehydration, ALOC Pertinent Medical Hx/Surgical Hx PUD/GERD, parkinson, schizophrenia Subjective Information Consult received for TF and jayesh 11. Pt seen lying in bed at time of visit. Observed TF running at 58ml/hr at this time. Per nurse note, pt tolerated TF well and no residual noted. Current Diet Order/ Nutrition Support Jevity 1.2 at 58ml/hr x 20hr, flush with water 100cc q6hr Pertinent Medications D5-0.45ns Pertinent Labs 2/4 Glucose 109, alb 3.6 2/3 BUN 26, Alb 3.6 Nutritional Hx/Data Height 1.55 m Height (Calculated Centimeters) 154.9 Current Weight (lbs) 50.802 kg Weight (Calculated Kilograms) 50.8 Weight (Calculated Grams) 95901.3 [place] Body Weight 105 Body Mass Index (BMI) 21.1 Weight Status Approriate GI Symptoms GI Symptoms None Last BM not indicated Usual diet at home Jevity 1.5 at 58ml/hr x 20hr Skin Integrity/Comment: reddened to vagina, left lower leg and lower back, lesion to left knee, scar to left leg and right knee. Estimated Nutritional Goals BEE in Kcals: Using Current wt Calories/Kcals/Kg 25-30 Kcals Calculated 9019-5592 Protein: Using Current wt Protein g/k-1.2 Fluid: ml 1250-1500ml (1ml/kcal) Nutritional Problem No current Nutrition Prob Problem N/A Intervention/Recommendation Comments 1. Continue with current TF regimen. It provides 1200kcal, 54g protein, 888ml free water , meeting 100% of nutritional needs 2. Monitor TF rate, tolerance, wt, skin integrity and labs 3. F/U as moderate risk in 3-5 days, 04/09-04/11 Expected Outcomes/Goals Expected Outcomes/Goals 1. Pt to meet at least 90% of nutritional needs via nutrition support with tolerance 2. Wt stability, skin to remain intact, labs to approach WNL.
[2018-04-09] MEDS: Dextromethorphan/Quinidine 20mg/10mg Cap GT SCH (21:27)
[2018-04-09] MEDS: Fenofibrate, Micronized 134 mg Cap GT SCH (21:27)
[2018-04-10] MEDS: Docusate Sodium 100 mg/10 mL UD GT SCH (08:48)
[2018-04-10] MEDS: Pantoprazole 40 mg/Packet GT SCH (08:48)
[2018-04-10] MEDS: BUSPAR 10 MG GT SCH ×2 (08:55→14:57)
--- NOTE | 2018-04-10 14:08 | Consultation ---
DATE OF CONSULTATION: 04/09/2018 HISTORY OF PRESENT ILLNESS: A 77-year-old female. The patient noted to be calm at this time, still in a flexion position, minimally interactive, AO to name, place. She is not quite sure about the year, although she was able to tell me what is her birthdate few days ago. No distress. Stating that she is sleeping okay. No behavioral disturbances. No aggressive behaviors. MENTAL STATUS EXAMINATION: Stated age. Lying in flexion. Mood "okay." Affect flat. Thought processes were difficult to fully assess. Somewhat impoverished. Some disorientation noted. No suicidal gestures. No psychosis. PROVISIONAL DIAGNOSIS: No changes. RECOMMENDATIONS AND PLAN: The patient fairly stable from a psychiatric perspective. No acute psychiatric interventions at this time. [facility]# [id number]
--- NOTE | 2018-04-10 14:32 | Infectious Disease Prog Note ---
Infectious Disease Subjective - Review of Systems Service Date: 04/10/18 Subjective: no new change, no fever. Infectious Disease Objective - Results Result Diagrams: 04/09/18 06:10 04/09/18 06:10 Recent Labs: Laboratory Last Values WBC 7.8 Th/cmm (4.8-10.8) 04/09/18 06:10 RBC 4.62 Mil/cmm (3.80-5.20) 04/09/18 06:10 Hgb 13.1 gm/dL (12-16) 04/09/18 06:10 Hct 39.3 % (41.0-60) L 04/09/18 06:10 MCV 85.0 fl (81-100) 04/09/18 06:10 MCH 28.4 pg (27.0-31.0) 04/09/18 06:10 MCHC Differential 33.4 pg (28.0-36.0) 04/09/18 06:10 RDW 12.9 % (11.5-20.0) 04/09/18 06:10 Plt Count 193 Th/cmm (150-400) 04/09/18 06:10 MPV 10.1 fl 04/09/18 06:10 Neutrophils % 78.8 % (40.0-80.0) 04/09/18 06:10 Lymphocytes % 12.9 % (20.0-50.0) L 04/09/18 06:10 Monocytes % 7.4 % (2.0-10.0) 04/09/18 06:10 Eosinophils % 0.3 % (0.0-5.0) 04/09/18 06:10 Basophils % 0.6 % (0.0-2.0) 04/09/18 06:10 Sodium 143 mEq/L (136-145) 04/09/18 06:10 Potassium 4.2 mEq/L (3.5-5.1) 04/09/18 06:10 Chloride 108 mEq/L (98-107) H 04/09/18 06:10 Carbon Dioxide 24.2 mEq/L (21.0-31.0) 04/09/18 06:10 Anion Gap 15.0 (7.0-16.0) 04/09/18 06:10 BUN 29 mg/dL (7-25) H 04/09/18 06:10 Creatinine 0.5 mg/dL (0.6-1.2) L 04/09/18 06:10 Est GFR ( Amer) TNP 04/09/18 06:10 Est GFR (Non-Af Amer) TNP 04/09/18 06:10 BUN/Creatinine Ratio 58.0 04/09/18 06:10 Glucose 106 mg/dL (70-105) H 04/09/18 06:10 POC Glucose 80 MG/DL (70 - 105) 04/05/18 17:48 Whole Bld Lactic Acid 0.64 mmol/L (0.60-1.99) 04/05/18 13:29 Calcium 9.7 mg/dL (8.6-10.3) 04/09/18 06:10 Phosphorus 3.6 mg/dL (2.5-5.0) 04/05/18 13:29 Magnesium 2.0 mg/dL (1.9-2.7) 04/05/18 13:29 Total Bilirubin 0.3 mg/dL (0.3-1.0) 04/09/18 06:10 AST 18 U/L (13-39) 04/09/18 06:10 ALT 12 U/L (7-52) 04/09/18 06:10 Alkaline Phosphatase 71 U/L (34-104) 04/09/18 06:10 Troponin I 0.01 ng/mL (0.01-0.05) 04/05/18 13:29 Total Protein 7.0 gm/dL (6.0-8.3) 04/09/18 06:10 Albumin 4.0 gm/dL (3.7-5.3) 04/09/18 06:10 Globulin 3.0 gm/dL 04/09/18 06:10 Albumin/Globulin Ratio 1.3 (1.0-1.8) 04/09/18 06:10 TSH 3.82 uIU/ml (0.34-5.60) 04/05/18 13:29 Urine Source CATH 04/05/18 14:05 Urine Color YELLOW 04/05/18 14:05 Urine Clarity CLOUDY (CLEAR) H 04/05/18 14:05 Urine pH 8.0 (4.6 - 8.0) 04/05/18 14:05 Ur Specific [place] 1.010 (1.005-1.030) 04/05/18 14:05 Urine Protein TRACE mg/dL (NEGATIVE) 04/05/18 14:05 Urine Glucose (UA) NEGATIVE mg/dL (NEGATIVE) 04/05/18 14:05 Urine Ketones NEGATIVE mg/dL (NEGATIVE) 04/05/18 14:05 Urine Blood LARGE (NEGATIVE) H 04/05/18 14:05 Urine Nitrate POSITIVE (NEGATIVE) H 04/05/18 14:05 Urine Bilirubin NEGATIVE (NEGATIVE) 04/05/18 14:05 Urine Urobilinogen 0.2 E.U./dL (0.2 - 1.0) 04/05/18 14:05 Ur Leukocyte Esterase MODERATE (NEGATIVE) H 04/05/18 14:05 Urine RBC 2-5 /hpf (0-5) 04/05/18 14:05 Urine WBC 50-100 /hpf (0-5) H 04/05/18 14:05 Ur Epithelial Cells NONE SEEN /lpf (FEW) 04/05/18 14:05 Urine Bacteria MANY /hpf (NONE SEEN) H 04/05/18 14:05 - Physical Exam Vitals and I&O: Vital Signs Temp 97.7 F 04/10/18 11:51 Pulse 80 04/10/18 11:51 Resp 19 04/10/18 11:51 BP 138/65 04/10/18 11:51 Pulse Ox 97 04/10/18 11:51 Intake & Output 04/09/18 04/10/18 04/10/18 18:59 06:59 18:59 Intake Total 902 606 Balance 902 606 Weight (lbs) 43.091 kg 43.091 kg Intake: Oral 0 Tube Feeding 352 606 Other 550 Other: # Voids 3 # Bowel Movements 1 Stool Characteristics Formed Formed Formed Hard Hard Hard Weight Source Bedscale Bedscale Active Medications: Current Medications Ascorbic Acid (Vitamin C) 500 mg GT DAILY [facility] Stop: 06/05/18 17:29 Last Admin: 04/10/18 08:48 Dose: 500 mg Benztropine Mesylate (Cogentin) 0.5 mg GT BID [facility] Stop: 06/05/18 17:29 Last Admin: 04/10/18 08:54 Dose: 0.5 mg Cyclobenzaprine HCl (Flexeril) 5 mg GT BID [facility] Stop: 06/05/18 17:29 Last Admin: 04/10/18 08:55 Dose: 5 mg Dextromethorphan/Quinidine (Nuedexta 20mg-10mg) 1 cap GT [facility] Stop: 06/05/18 20:59 Last Admin: 04/09/18 21:27 Dose: 1 cap Docusate Sodium (Colace) 100 mg GT DAILY [facility] Stop: 06/05/18 17:44 Last Admin: 04/10/18 08:48 Dose: 100 mg Fenofibrate (Tricor) 134 mg GT [facility] Stop: 06/07/18 20:59 Last Admin: 04/09/18 21:27 Dose: 134 mg Gabapentin (Neurontin) 200 mg GT BID [facility] Stop: 06/05/18 17:44 Last Admin: 04/10/18 08:55 Dose: 200 mg Gabapentin (Neurontin) 300 mg GT [facility] Stop: 06/05/18 20:59 Last Admin: 04/09/18 21:27 Dose: 300 mg Meropenem 500 mg/ Sodium (Chloride) 100 mls @ 100 mls/hr IV BID [facility] Stop: 06/07/18 16:59 Lidocaine (Lidoderm 5% Patch) 1 patch TD DAILY [facility] Stop: 06/05/18 17:44 Last Admin: 04/09/18 10:10 Dose: 1 patch Lorazepam (Ativan) 0.5 mg GT Q6HR PRN; Protocol PRN Reason: Anxiety Stop: 06/05/18 17:29 Last Admin: 04/06/18 21:47 Dose: 0.5 mg Metoprolol Tartrate (Lopressor) 12.5 mg GT BID [facility] Stop: 06/05/18 17:44 Last Admin: 04/10/18 08:48 Dose: 12.5 mg Mirtazapine (Remeron) 22.5 mg GT [facility] Stop: 06/05/18 20:59 Last Admin: 04/09/18 21:27 Dose: 22.5 mg Miscellaneous (Lurasidone Hcl [Latuda]) 10 mg GT QPM [facility] Stop: 06/06/18 16:59 Miscellaneous (Misc Oral Tab) 1 tab GT TID [facility]; Protocol Stop: 06/05/18 20:59 Last Admin: 04/10/18 08:55 Dose: 1 tab Pantoprazole Sodium (Protonix) 40 mg GT BID [facility] Stop: 06/05/18 17:44 Last Admin: 04/10/18 08:48 Dose: 40 mg Tramadol HCl (Ultram) 50 mg GT Q6HR PRN PRN Reason: Pain (Moderate) Stop: 06/05/18 17:29 Last Admin: 04/10/18 08:55 Dose: 50 mg General: no acute distress, well developed, well nourished HEENT: atraumatic, normocephalic, PERRLA, EOMI, moist mucous membrane Neck: supple, no thyromegaly Cardiovascular: S1S2, regular Lungs: clear to auscultation bilaterally, clear to percussion Abdomen: soft, no tender, no distended Extremities: no cyanosis, no clubbing, no edema Neurological: awake, alert Skin: intact - Procedures Procedures: Procedures Procedure Code Date GROUP PSYCHOTHERAPY GZHZZZZ 12/13/14 Infectious Disease Assmt/Plan - Assessment Assessment: 1. Urinary tract infection. Pseudomonas 2. Agitation. 3. Schizoaffective disorder. 4. Hypertension. 5. Dysphagia, G-tube placement. 6. MRSA colonization. - Plan Plan: CPm. continue meropenem for 7 days. Nutritional Asmnt/Malnutr-PDOC - Dietary Evaluation Malnutrition Findings (Please click <Entered> for more info): Nutritional Asmnt/Malnutrition Start: 04/06/18 13: 49 Text: Status: Complete Freq: Protocol: Document 04/06/18 13:49 LCHENG (Rec: 04/06/18 14:01 [email or web address]) Nutritional Asmnt/Malnutrition Patient General Information Nutritional Screening High Risk Consult Diagnosis UTI, dehydration, ALOC Pertinent Medical Hx/Surgical Hx PUD/GERD, parkinson, schizophrenia Subjective Information Consult received for TF and jayesh 11. Pt seen lying in bed at time of visit. Observed TF running at 58ml/hr at this time. Per nurse note, pt tolerated TF well and no residual noted. Current Diet Order/ Nutrition Support Jevity 1.2 at 58ml/hr x 20hr, flush with water 100cc q6hr Pertinent Medications D5-0.45ns Pertinent Labs 2/4 Glucose 109, alb 3.6 2/3 BUN 26, Alb 3.6 Nutritional Hx/Data Height 1.55 m Height (Calculated Centimeters) 154.9 Current Weight (lbs) 50.802 kg Weight (Calculated Kilograms) 50.8 Weight (Calculated Grams) 72759.3 [place] Body Weight 105 Body Mass Index (BMI) 21.1 Weight Status Approriate GI Symptoms GI Symptoms None Last BM not indicated Usual diet at home Jevity 1.5 at 58ml/hr x 20hr Skin Integrity/Comment: reddened to vagina, left lower leg and lower back, lesion to left knee, scar to left leg and right knee. Estimated Nutritional Goals BEE in Kcals: Using Current wt Calories/Kcals/Kg 25-30 Kcals Calculated 8287-4107 Protein: Using Current wt Protein g/k-1.2 Fluid: ml 1250-1500ml (1ml/kcal) Nutritional Problem No current Nutrition Prob Problem N/A Intervention/Recommendation Comments 1. Continue with current TF regimen. It provides 1200kcal, 54g protein, 888ml free water , meeting 100% of nutritional needs 2. Monitor TF rate, tolerance, wt, skin integrity and labs 3. F/U as moderate risk in 3-5 days, 04/09-04/11 Expected Outcomes/Goals Expected Outcomes/Goals 1. Pt to meet at least 90% of nutritional needs via nutrition support with tolerance 2. Wt stability, skin to remain intact, labs to approach WNL.
--- NOTE | 2018-04-11 14:37 | Consultation ---
DATE OF CONSULTATION: 04/10/2018 SUBJECTIVE: A 78-year-old female, currently in the hospital, sleeping, arousable, but not wanting to talk to me. The patient has been generally calm, cooperative, no behavioral disturbances. No agitation, no escalation of behaviors, not causing any problems on hitting anybody for the last couple of days. No outbursts. PAST PSYCHIATRIC HISTORY: Noted. MENTAL STATUS EXAMINATION: Stated age, sleeping, arousable, but closes her eyes and goes back to sleep, mildly lethargic. No suicidal gestures. No overt psychotic symptoms. MEDICATIONS: Reviewed. PROVISIONAL DIAGNOSIS: No changes. RECOMMENDATIONS AND PLAN: No behavioral disturbances. We will monitor and follow up. [facility]# [id number]
== END 2018-04-10 15:35 | DRG 690 ==
LOC: ER 12:14 → MSI 15:45
PROVIDERS: ADMIT Family Medicine; ATTEND Family Medicine
DX: N39.0 Urinary tract infection, site not specified (principal); E44.1 Mild protein-calorie malnutrition; Z68.1 Body mass index [BMI] 19.9 or less, adult; G20 Parkinson's disease; I10 Essential (primary) hypertension; Z93.1 Gastrostomy status; M54.5 Low back pain; F25.9 Schizoaffective disorder, unspecified; R13.10 Dysphagia, unspecified; D64.9 Anemia, unspecified; F41.9 Anxiety disorder, unspecified; K21.9 Gastro-esophageal reflux disease without esophagitis; E86.0 Dehydration; G62.9 Polyneuropathy, unspecified; G89.4 Chronic pain syndrome; B96.5 Pseudomonas (aeruginosa) (mallei) (pseudomallei) as the cause of diseases classified elsewhere; Z16.24 Resistance to multiple antibiotics; Z22.322 Carrier or suspected carrier of Methicillin resistant Staphylococcus aureus; Z88.8 Allergy status to other drugs, medicaments and biological substances
CPT/HCPCS: 36415-UA; 76770-TC; 80053-TC; 81001-TC; 81003-TC; 82948-90; 83605; 83735-TC; 84100-TC; 84443-TC; 84484-TC; 85025-TC; 87070-90; 87086-90; 93005; J0696; J0744; J2185; Z7610